=== PATIENT | female | born 1955 | race Caucasian/White ===

== ENCOUNTER → 2018-04-05 | Outpatient (CLI) | payer OTHER ==
--- NOTE | 2018-04-05 18:38 | Diagnostic Imaging Report ---
CLINICAL INDICATION: Patient with postmenopausal bleeding. Patient had menopause at 51 and bleeding at 62. EXAM: Transvaginal and transabdominal ultrasound of the pelvis. COMPARISON: None. FINDINGS: Bowel gas obscures some portions of this exam. The right and left ovaries are not visualized on this exam and may have been obscured by bowel gas. There is grossly 2.4 cm x 3.8 cm hypoechoic fluid collection within the endometrium in the region of the fundus, which has internal echoes seen. The uterus is otherwise unremarkable and measures 8.7 cm x 5.6 cm x 5.0 cm. There is no intra-abdominal free fluid. IMPRESSION: 1: There is a large fluid collection within the fundus of the endometrium. This fluid collection has internal echoes with no abnormal central Doppler flow. These findings are concerning for blood, especially in the setting of postmenopausal bleeding. Given that there is an endometrial fluid collection concerning for blood in a postmenopausal patient, an endometrial mass should be excluded. 2: Otherwise, the uterus is unremarkable. 3: The bilateral ovarian regions are unable to be visualized on this exam. Dictated by: Dictated on workstation # [id number]
== END ==
LOC: RAD 15:00
PROVIDERS: ATTEND Nurse Practitioner Family
DX: N95.0 Postmenopausal bleeding (principal)
CPT/HCPCS: 76830; 76856

== ENCOUNTER 2018-07-12 23:17 | Emergency (ER) | payer OTHER ==
[~2018-07-12] VITALS: Ht 157.5 cm; Wt 79.4 kg
--- OUTSIDE RECORDS SUMMARY | 2018-07-12 23:25 | XMS REPORT ---
Author Author CORNELIUSSHAZIA Odell Organization [facility] [place] Address [address] [place] [address] Care Team Providers Care Mail Clerk Name Role Phone CORNELIUSSHAZIA Odell Unavailable PROBLEMS Type Condition ICD9-CM Code [id number] Code Onset Dates Condition Status SNOMED Code Problem Acute cystitis with hematuria N30.01 Active 31413540 Problem Abdominal pain R10.9 Active 43620499 Problem Acute cystitis without hematuria N30.00 Active 23333569 Problem Irregular uterine bleeding N92.6 Active 64234533 Problem Post-menopausal bleeding N95.0 Active 40894010 ALLERGIES No Information ENCOUNTERS Encounter Location Date Diagnosis [facility] [id number] [place] [address]44- 2130 19 Apr, 2018 Acute cystitis with hematuria N30.01 [facility] [id number] [place] [address] 60724- [phone] 18 Apr, 2018 [facility] [place] [id number] [place] [address] 41055- [phone] 14 Apr, 2018 Post-menopausal bleeding N95.0 ; Abdominal pain R10.9 and Acute cystitis with hematuria N30.01 [facility] [id number] [place] [address] 11470- [phone] March, Post-menopausal bleeding N95.0 [facility] [id number] [place] [address] 65296 -4103 24 Feb, 2018 Abdominal pain R10.9 ; Acute cystitis without hematuria N30.00 ; Post-menopausal bleeding N95.0 and Irregular uterine bleeding N92.6 [facility] [id number] [place] [address] 57380- [phone] 10 Apr, 2009 IMMUNIZATIONS No Known Immunizations SOCIAL HISTORY Never Assessed REASON FOR VISIT new orders PLAN OF CARE VITAL SIGNS MEDICATIONS Medication Instructions Dosage Frequency Start Date End Date Duration Status Amoxicillin 500 mg Orally every 12 hrs 1 capsule 12h Apr, Apr, 10 day(s) Active RESULTS No Results PROCEDURES No Known procedures INSTRUCTIONS MEDICATIONS ADMINISTERED No Known Medications MEDICAL (GENERAL) HISTORY Type Description Date Medical History post menopause
--- OUTSIDE RECORDS SUMMARY | 2018-07-12 23:25 | XMS REPORT ---
Author Author CORNELIUSSHAZIA Odell Organization [facility] [place] Address [address] [place] [address] Care Team Providers Care Sisal Operator Name Role Phone CORNELIUSSHAZIA Odell Unavailable PROBLEMS Type Condition ICD9-CM Code [id number] Code Onset Dates Condition Status SNOMED Code Problem Acute cystitis with hematuria N30.01 Active 03359177 Problem Abdominal pain R10.9 Active 80732751 Problem Acute cystitis without hematuria N30.00 Active 75171481 Problem Irregular uterine bleeding N92.6 Active 00479263 Problem Post-menopausal bleeding N95.0 Active [id number] ALLERGIES No Known Allergies ENCOUNTERS Encounter Location Date Diagnosis [facility] [place] [id number] [place] [address] 48248- 2089 Apr, Acute cystitis with hematuria N30.01 [facility] [place] [id number] [place] [address] 42245- 1129 18 Apr, 2018 [facility] [place] [id number] [place] [address] 74048- 5714 14 Apr, 2018 Post-menopausal bleeding N95.0 ; Abdominal pain R10.9 and Acute cystitis with hematuria N30.01 [facility] [place] [id number] [place] [address] 06649- 4847 March, Post-menopausal bleeding N95.0 [facility] [id number] [place] [address] [phone] -[phone] 24 Feb, 2018 Abdominal pain R10.9 ; Acute cystitis without hematuria N30.00 ; Post-menopausal bleeding N95.0 and Irregular uterine bleeding N92.6 [facility] [place] [id number] [place] [address] 76941- 6877 Apr, IMMUNIZATIONS No Known Immunizations SOCIAL HISTORY Never Assessed REASON FOR VISIT Establish [facility], c/o lower abd pain and lower back pain PLAN OF CARE Activity Details Follow Up 4 Weeks Reason:f/u Future/Pending Procedure ROUTINE VENIPUNCTURE VITAL SIGNS Height 63 in 2018-04-26 Weight 197.5 lbs 2018-04-26 Temperature 98.3 degrees Fahrenheit 2018-04-26 Heart Rate 73 bpm 2018-04-26 Respiratory Rate 20 2018-04-26 BMI 34.98 kg/m2 2018-04-26 Blood pressure systolic 150 mmHg 2018-04-26 Blood pressure diastolic 90 mmHg 2018-04-26 MEDICATIONS Medication Instructions Dosage Frequency Start Date End Date Duration Status Macrobid 100 mg Orally every 12 hrs 1 capsule with food 12h Apr, Apr, 05 days Active RESULTS No Results PROCEDURES Procedure Date Ordered Result Body Site COMPLETE CBC W/AUTO DIFF WBC April 26, 2018 COMPREHEN METABOLIC PANEL April 26, 2018 URINE CULTURE/COLONY COUNT April 26, 2018 URINALYSIS, AUTO, W/O SCOPE April 26, 2018 VENIPUNCT, ROUTINE* April 26, 2018 LIPID PANEL April 26, 2018 ASSAY THYROID STIM HORMONE April 26, 2018 Hemoglobin Test Send Out 0 dollar April 26, 2018 IMMUNOASSAY, TUMOR, CA 125 April 26, 2018 INSTRUCTIONS MEDICATIONS ADMINISTERED No Known Medications MEDICAL (GENERAL) HISTORY Type Description Date Medical History post menopause
--- OUTSIDE RECORDS SUMMARY | 2018-07-12 23:25 | XMS REPORT ---
Author Author NATE VALDES [facility] Address [address] [place] [address] Care Team Providers Care Bundle Tier And Labeler Name Role Phone NATE VALDES Unavailable PROBLEMS Type Condition ICD9-CM Code [id number] Code Onset Dates Condition Status SNOMED Code Problem Acute cystitis with hematuria N30.01 Active 26998889 Problem Abdominal pain R10.9 Active 78734881 Problem Acute cystitis without hematuria N30.00 Active 74228414 Problem Irregular uterine bleeding N92.6 Active 07736076 Problem Post-menopausal bleeding N95.0 Active 80421582 ALLERGIES No Information ENCOUNTERS Encounter Location Date Diagnosis [facility] [address] [address] Apr, Acute cystitis with hematuria N30.01 [facility] [id number] [place] [address] 82562- 8504 18 Apr, 2018 [facility] [id number] [place] [address] 37331- 5478 14 Apr, 2018 Post-menopausal bleeding N95.0 ; Abdominal pain R10.9 and Acute cystitis with hematuria N30.01 [facility] [id number] [place] [address] 51493- 5722 March, Post-menopausal bleeding N95.0 [facility] [id number] [place] [address] [phone] -[phone] 24 Feb, 2018 Abdominal pain R10.9 ; Acute cystitis without hematuria N30.00 ; Post-menopausal bleeding N95.0 and Irregular uterine bleeding N92.6 [facility] [id number] [place] [address] [phone]- 9431 Apr, IMMUNIZATIONS No Known Immunizations SOCIAL HISTORY Never Assessed REASON FOR VISIT Corrected Order PLAN OF CARE VITAL SIGNS MEDICATIONS Unknown Medications RESULTS Name Result Date Reference Range Ultrasound : Pelvic, COMPLETE (REFLEX [id number]) 2018-04-02 PROCEDURES No Known procedures INSTRUCTIONS MEDICATIONS ADMINISTERED No Known Medications MEDICAL (GENERAL) HISTORY Type Description Date Medical History post menopause
--- OUTSIDE RECORDS SUMMARY | 2018-07-12 23:25 | XMS REPORT ---
Author Author NATE VALDES [facility] Address [address] [place] [address] Care Team Providers Care Machine Pecan Picker Name Role Phone NATE VALDES Unavailable PROBLEMS Type Condition ICD9-CM Code QVS38-GP Code Onset Dates Condition Status SNOMED Code Problem Acute cystitis with hematuria N30.01 Active 25974592 Problem Abdominal pain R10.9 Active 52270704 Problem Acute cystitis without hematuria N30.00 Active 76709350 Problem Irregular uterine bleeding N92.6 Active 24662346 Problem Post-menopausal bleeding N95.0 Active 04525517 ALLERGIES No Known Allergies ENCOUNTERS Encounter Location Date Diagnosis [facility] [address] [address] Apr, Acute cystitis with hematuria N30.01 [facility] [id number] [place] [address] 28213- 2111 18 Apr, 2018 [facility] [address] 216[address]- [address] 14 Apr, 2018 Post-menopausal bleeding N95.0 ; Abdominal pain R10.9 and Acute cystitis with hematuria N30.01 [facility] [id number] [place] [address] 37870- 5543 March, Post-menopausal bleeding N95.0 [facility] [id number] [place] [address] 80032 -[phone] 24 Feb, 2018 Abdominal pain R10.9 ; Acute cystitis without hematuria N30.00 ; Post-menopausal bleeding N95.0 and Irregular uterine bleeding N92.6 [facility] [id number] [place] [address] 82228- 9642 Apr, IMMUNIZATIONS No Known Immunizations SOCIAL HISTORY Never Assessed REASON FOR VISIT abdominal pain Pt c/o pelvic pain and bleeding after menopause, along with painful intercourse SERGEY Jaime PLAN OF CARE Activity Details Follow Up 1 Week w/ Dr. Burns or Dr. Shrestha Reason:irregular uterine bleeding and stress incontinence VITAL SIGNS Weight 195.6 lbs 2018-03-06 Temperature 98.0 degrees Fahrenheit 2018-03-06 Heart Rate 88 bpm 2018-03-06 Respiratory Rate 20 2018-03-06 Blood pressure systolic 148 mmHg 2018-03-06 Blood pressure diastolic 76 mmHg 2018-03-06 MEDICATIONS Medication Instructions Dosage Frequency Start Date End Date Duration Status Macrobid 100 mg Orally every 12 hrs 1 capsule with food 12h Feb, March, 7 day(s) Active RESULTS No Results PROCEDURES Procedure Date Ordered Result Body Site URINE CULTURE/COLONY COUNT March 06, 2018 INSTRUCTIONS MEDICATIONS ADMINISTERED No Known Medications MEDICAL (GENERAL) HISTORY Type Description Date Medical History post menopause
--- OUTSIDE RECORDS SUMMARY | 2018-07-12 23:25 | XMS REPORT ---
Author Author CORNELIUSSHAZIA Odell Organization [facility] Address [address] [place] [address] Care Team Providers Care Architectural Job Captain Name Role Phone CORNELIUSSHAZIA Odell Unavailable PROBLEMS Type Condition ICD9-CM Code GHN93-OC Code Onset Dates Condition Status SNOMED Code Problem Acute cystitis with hematuria N30.01 Active 04984344 Problem Abdominal pain R10.9 Active 92773346 Problem Acute cystitis without hematuria N30.00 Active 97116237 Problem Irregular uterine bleeding N92.6 Active 41621238 Problem Post-menopausal bleeding N95.0 Active 52771840 ALLERGIES No Information ENCOUNTERS Encounter Location Date Diagnosis [facility] [id number] [place] [address] 62987- 1142 19 Apr, 2018 Acute cystitis with hematuria N30.01 [facility] [id number] [place] [address] 79967- 6287 18 Apr, 2018 [facility] [id number] [place] [address] 76889- 5203 14 Apr, 2018 Post-menopausal bleeding N95.0 ; Abdominal pain R10.9 and Acute cystitis with hematuria N30.01 [facility] [id number] [place] [address] 16808- 4246 March, Post-menopausal bleeding N95.0 [facility] [id number] [place] [address] [phone] -[phone] 24 Feb, 2018 Abdominal pain R10.9 ; Acute cystitis without hematuria N30.00 ; Post-menopausal bleeding N95.0 and Irregular uterine bleeding N92.6 [facility] [id number] [place] [address] 42147- 5820 10 Apr, 2009 IMMUNIZATIONS No Known Immunizations SOCIAL HISTORY Never Assessed REASON FOR VISIT Rx from lab PLAN OF CARE VITAL SIGNS MEDICATIONS Medication Instructions Dosage Frequency Start Date End Date Duration Status MetFORMIN HCl ER 500 mg Orally twice a day 1 tablet 12h Apr, 30 day(s) Active RESULTS No Results PROCEDURES No Known procedures INSTRUCTIONS MEDICATIONS ADMINISTERED No Known Medications MEDICAL (GENERAL) HISTORY Type Description Date Medical History post menopause
[2018-07-13 00:51] LABS: HEMOGLOBIN 12.1 G/DL (11.5-16.0); MEAN PLATELET VOLUME 9.1 FL (7.4-10.4); RED BLOOD COUNT 4.18 10^6/uL (4.35-5.85); RED CELL DISTRIBUTION WIDTH 12.9 % (10.0-14.5); WHITE BLOOD COUNT 9.6 10^3/uL (4.3-11.0)
--- NOTE | 2018-07-13 01:35 | ED Abdominal Pain ---
General Chief Complaint: -Female Stated Complaint: ABD PAIN,ABD BLEEDING Nursing Triage Note: INTERMITTANT VAGINAL BLEEDING X2 MONTHS WORSE TONIGHT Sepsis Screen: No Definite Risk Source of Information: Patient, Family (Son) Exam Limitations: Language Barrier (CADEN ALEGRE STUDENT) History of Present Illness Date Seen by Provider: Jul 13, 2018 Time Seen by Provider: 01:15 Initial Comments Patient presents to ED with intermittent vaginal bleeding over the last two months which has been getting worse. History taken from patient and her son who brought her as she has problems with Uzbek. Patient reports she has spotted every day for the past month and has pelvic imaging scheduled next week. She is confused about who she has been following up with for this issue, she originally said that she was seeing CUSTOMER SALES REPRESENTATIVE but it appears as though she really has been seeing a practitioner at the [facility]. Tonight the patient states she began to bleed briefly at approximately 2100 and again at 2300 which also quickly ceased, with the bleeding tonight she also experienced suprapubic and lumbar pain which persists. Nothing makes the pain better or worse and she has not taken anything for the pain. Patient denies numbness and tingling, weakness, and changes in bowel or bladder habits. Patient admits to recently having a urinary tract infection which was successfully treated. Timing/Duration: Intermittent, Other (2 months) Severity/Quality: Aching Location: Suprapubic, Other (Lumbar spine) Activities at Onset: None Associated Symptoms: Denies Symptoms (CADEN ALEGRE STUDENT) Initial Comments Here with intermittent vaginal bleeding which appears to have been going on since March of this year. She had ultrasound at that time. She appears to have been seen by a practitioner at [facility]. She reports that she saw her yesterday but does not remember her name. She is due to get further imaging early next week but she's not sure what that imaging is or what day. Patient admits that she does not go to the doctor very often. Here with lower abdominal pain and back pain as well as the intermittent vaginal bleeding. Timing/Duration: Other (3 months) Severity/Quality: Cramping Location: Suprapubic Radiation: Back Activities at Onset: None Modifying Factors: Improves With Other (none) Associated Symptoms: Denies Symptoms (GRETA HILLMAN MD) Allergies and Home Medications Allergies Coded Allergies: No Known Drug Allergies (Unverified , 07/13/18) Home Medications No Active Prescriptions or Reported Meds Patient Home Medication List Home Medication List Reviewed: Yes (CADEN ALEGRE) Home Medication List Reviewed: Yes (GRETA HILLMAN MD) Review of Systems Review of Systems Constitutional: no symptoms reported, see HPI EENTM: No Blurred Vision, No Double Vision Respiratory: No Symptoms Reported, See HPI Cardiovascular: No Symptoms Reported, See HPI Gastrointestinal: No Symptoms Reported, See HPI, Rectal Bleeding Genitourinary: No Symptoms Reported, See HPI, Other (Recent UTI, resolved) Musculoskeletal: see HPI, back pain Skin: no symptoms reported, see HPI Psychiatric/Neurological: No Symptoms Reported Endocrine: No Symptoms Reported, See HPI Hematologic/Lymphatic: No Symptoms Reported, See HPI (CADEN ALEGRE ) Constitutional: see HPI; No chills, No fever EENTM: No Symptoms Reported Respiratory: Denies Cough, Denies Shortness of Air Cardiovascular: Denies Chest Pain, Denies Edema Gastrointestinal: See HPI, Abdominal Pain; Denies Nausea; Rectal Bleeding ( occasional intermittent but not currently); Denies Vomiting Genitourinary: See HPI; Denies Hematuria; Other (Recent UTI, resolved) Musculoskeletal: back pain; No muscle weakness Skin: no symptoms reported Psychiatric/Neurological: No Symptoms Reported (GRETA HILLMAN MD) All Other Systems Reviewed Negative Unless Noted: Yes (GRETA HILLMAN MD) Past Zdbhjpm-Tzwbvg-Ulidvm Hx Past Med/Social Hx: Reviewed Nursing Past Med/Soc Hx (GRETA HILLMAN MD) Patient Social History Alcohol Use: Denies Use Recreational Drug Use: No Smoking Status: Never a Smoker 2nd Hand Smoke Exposure: No Recent Foreign Travel: No Contact w/Someone Who Travel: No Recent Infectious Disease Expo: No Recent Hopitalizations: No (CADEN ALEGRE) Immunizations Up To Date Tetanus Booster (TDap): Unknown (CADEN ALEGRE) Seasonal Allergies Seasonal Allergies: No (CADEN ALEGRE) Past Medical History Surgeries: No Respiratory: No Cardiac: Yes Hypertension Neurological: No Genitourinary: Yes UTI-Chronic Gastrointestinal: No Musculoskeletal: No Endocrine: Yes Diabetes, Non-Insulin dep HEENT: No Cancer: No Psychosocial: No Integumentary: No Blood Disorders: No (CADEN ALEGRE STUDENT) Family Medical History Reviewed Nursing Family Hx (GRETA HILLMAN MD) Physical Exam Vital Signs Vital Signs - First Documented 07/13/18 00:05 Temp 97.8 Pulse 77 Resp 18 B/P (MAP) 167/100 (122) Pulse Ox 100 O2 Delivery Room Air (GRETA HILLMAN MD) Vital Signs Capillary Refill : Less Than 3 Seconds (CADEN ALEGRE STUDENT) Height/Weight/BMI Height: 5'2.00" Weight: 175lbs. oz. 79.018564ts; BMI Method:Stated General Appearance: WD/WN, no apparent distress, obese Neck: non-tender, full range of motion, supple, normal inspection Respiratory: chest non-tender, lungs clear, normal breath sounds, no respiratory distress, no accessory muscle use Cardiovascular: normal peripheral pulses, regular rate, rhythm, no edema, no gallop, no JVD, no murmur Peripheral Pulses: 2+ Dorsalis Pedis (R), 2+ Left Dors-Pedis (L), 2+ Radial Pulses (R), 2+ Radial Pulses (L) Gastrointestinal: normal bowel sounds, soft, no organomegaly, no pulsatile mass , tenderness (Suprapubic tenderness) Extremities: normal range of motion, non-tender, normal inspection, no pedal edema, no calf tenderness Back: normal inspection, no CVA tenderness, vertebral tenderness Neurologic/Psychiatric: no motor/sensory deficits, alert, normal mood/affect, oriented x 3 Skin: normal color, warm/dry (CADEN ALEGRE STUDENT) General Appearance: WD/WN, no apparent distress Neck: full range of motion, supple Respiratory: lungs clear, normal breath sounds Cardiovascular: regular rate, rhythm, no murmur Gastrointestinal: soft, tenderness (Suprapubic tenderness) Back: normal inspection, no CVA tenderness, vertebral tenderness (low back in the L4-L5 region) Neurologic/Psychiatric: alert, oriented x 3 Skin: normal color, warm/dry (GRETA HILLMAN MD) Progress/Results/Core Measures Results/Orders Lab Results Laboratory Tests Test 07/13/18 00:04 07/13/18 00:40 07/13/18 01:00 Range/Units Sodium Level 137 135-145 MMOL/L Potassium Level 3.6 3.6-5.0 MMOL/L Chloride Level 104 98-107 MMOL/L Carbon Dioxide Level 23 21-32 MMOL/L Anion Gap 10 5-14 MMOL/L Blood Urea Nitrogen 17 7-18 MG/DL Creatinine 0.82 0.60-1.30 MG/DL Estimat Glomerular Filtration Rate > 60 BUN/Creatinine Ratio 21 Glucose Level 108 H 70-105 MG/DL Calcium Level 9.5 8.5-10.1 MG/DL Corrected Calcium 9.6 8.5-10.1 MG/DL Total Bilirubin 0.7 0.1-1.0 MG/DL Aspartate Amino Transf (AST/SGOT) 17 5-34 U/L Alanine Aminotransferase (ALT/SGPT) 11 0-55 U/L Alkaline Phosphatase 63 40-136 U/L Total Protein 7.5 6.4-8.2 GM/DL Albumin 3.9 3.2-4.5 GM/DL White Blood Count 9.6 4.3-11.0 10^3/uL Red Blood Count 4.18 L 4.35-5.85 10^6/uL Hemoglobin 12.1 11.5-16.0 G/DL Hematocrit 37 35-52 % Mean Corpuscular Volume 89 80-99 FL Mean Corpuscular Hemoglobin 29 25-34 PG Mean Corpuscular Hemoglobin Concent 33 32-36 G/DL Red Cell Distribution Width 12.9 10.0-14.5 % Platelet Count 213 130-400 10^3/uL Mean Platelet Volume 9.1 7.4-10.4 FL Urine Color YELLOW Urine Clarity SLIGHTLY CLOUDY Urine pH 7 5-9 Urine Specific [place] 1.010 L 1.016-1.022 Urine Protein NEGATIVE NEGATIVE Urine Glucose (UA) NEGATIVE NEGATIVE Urine Ketones 1+ H NEGATIVE Urine Nitrite NEGATIVE NEGATIVE Urine Bilirubin NEGATIVE NEGATIVE Urine Urobilinogen NORMAL NORMAL MG/DL Urine Leukocyte Esterase 1+ H NEGATIVE Urine RBC (Auto) 5+ H NEGATIVE Urine RBC 50-100 H /HPF Urine WBC 2-5 /HPF Urine Squamous Epithelial Cells RARE /HPF Urine Crystals NONE /LPF Urine Bacteria FEW H /HPF Urine Casts NONE /LPF Urine Mucus NEGATIVE /LPF Urine Culture Indicated NO (GRETA HILLMAN MD) My Orders Orders - GRETA HILLMAN MD Cbc No Diff (07/13/18 00:26) Ua Culture If Indicated (07/13/18 01:52) Comprehensive Metabolic Panel (07/13/18 01:53) Ct Abdomen/Pelvis W (07/13/18 02:24) Iohexol Injection (Omnipaque 350 Mg/Ml 1 (07/13/18 03:00) Ns (Ivpb) (Sodium Chloride 0.9%) (07/13/18 03:00) Hydrocodone/Apap 5/325 Tablet (Lortab 5 (07/13/18 04:35) (GRETA HILLMAN MD) Medications Given in ED Current Medications Medications Dose Ordered Sig/Maxime Route Start Time Stop Time Status Last Admin Dose Admin Iohexol 100 ml ONCE ONCE IV 07/13/18 03:00 07/13/18 03:01 DC 07/13/18 03:01 100 ML Sodium Chloride 250 ml ONCE ONCE IV 07/13/18 03:00 07/13/18 03:01 DC 07/13/18 03:01 80 ML (GRETA HILLMAN MD) Vital Signs/I&O 07/13/18 00:05 Temp 97.8 Pulse 77 Resp 18 B/P (MAP) 167/100 (122) Pulse Ox 100 O2 Delivery Room Air (GRETA HILLMAN MD) Blood Pressure Mean: 122 Progress Progress Note : Time: 02:17 Progress Note Patient seen and evaluated. Reviewed previous medical records. Reviewed pelvic ultrasound report from 04/05/18 (copied below) which shows endometrial mass which warrants follow-up. Ordering labs and anticipating CT. FINDINGS: Bowel gas obscures some portions of this exam. The right and left ovaries are not visualized on this exam and may have been obscured by bowel gas. There is grossly 2.4 cm x 3.8 cm hypoechoic fluid collection within the endometrium in the region of the fundus, which has internal echoes seen. The uterus is otherwise unremarkable and measures 8.7 cm x 5.6 cm x 5.0 cm. There is no intra-abdominal free fluid. IMPRESSION: 1: There is a large fluid collection within the fundus of the endometrium. This fluid collection has internal echoes with no abnormal central Doppler flow. These findings are concerning for blood, especially in the setting of postmenopausal bleeding. Given that there is an endometrial fluid collection concerning for blood in a postmenopausal patient, an endometrial mass should be excluded. 2: Otherwise, the uterus is unremarkable. 3: The bilateral ovarian regions are unable to be visualized on this exam. Interpreted by: MARCO SALVADOR MD (CADEN ALEGRE MED STUDENT) Progress Note : Progress Note I have seen and evaluated the patient and agree with above except as indicated. I have directed the plan of care. I have reviewed the ultrasound results from previous visit as noted above. IV, labs and UA ordered. We will get CT abdomen and pelvis due to persistent concerns and failure to follow-up and lack of understanding of medical care. Normal saline 1 L bolus. Monitor patient. 0425: CT results noted and discussed with patient and family regarding the uterine mass and concerns of cancer. I did discuss the case with Dr. Mason, on- call for [facility]. She will assist in follow-up. Patient will have complex follow-up needs due to the cancer situation and concerns. I did discuss the need for follow-up with the patient and family and my concerns about cancer and its aggressiveness. They will follow up with [facility] in the morning. Discharged home with return precautions. Patient family verbalize understanding instructions and agreement with plan. (GRETA HILLMAN MD) Diagnostic Imaging Diagonstic Imaging: CT Plain Films/CT/US/NM/MRI: abdomen, pelvis Comments There is infiltrated mass in the uterus extending from the paracervical lower uterine segment and extending toward the right uterine mid body. There is heterogenous enhancement which may include endometrial enhancement. There is moderate distention of the fundal endometrial canal with fluid. These findings are suspicious for an aggressive uterine mass, possibly uterine cancer. There is high-grade right renal obstruction without nephrolithiasis. I suspect this is involvement external compression of the right distal ureter. Reviewed: Reviewed [place] Study, Reviewed by Me (GRETA HILLMAN MD) Departure Impression Primary Impression: Uterine mass Additional Impressions: Hydronephrosis of right kidney Obstruction of right ureter Disposition: 01 HOME, SELF-CARE Condition: Stable Departure-Patient Inst. Decision time for Depature: 04:30 (GRETA HILLMAN MD) Referrals: REHANA MASON MD Patient Instructions: Hydronephrosis, Adult (DC), Uterine Cancer Add. Discharge Instructions: All discharge instructions reviewed with patient and/or family. Voiced understanding. It is very important that you follow-up with the clinic today for recheck and further evaluation and further referral regarding the suspicious uterine mass. This may be cancer and he need further evaluation soon. Return for worse pain, fever, vomiting, weakness, breathing problems or other concerns as needed. Scripts Hydrocodone Bit/Acetaminophen (Hydrocodone/Acetaminophen 5/325mg Tablet) 1 Tab Tab 1 EACH PO Q6H PRN for PAIN-MODERATE, #20 TAB 0 Refills Prov: GRETA HILLMAN MD 07/13/18 Copy Copies To 1: REHANA MASON MD, JOSHUA MED STUDENT Jul 13, 2018 01:35 GRETA HILLMAN MD Jul 13, 2018 04:27
[2018-07-13 01:59] LABS: BILIRUBIN,URINE NEGATIVE (NEGATIVE); CLARITY,URINE SLIGHTLY CLOUDY; COLOR,URINE YELLOW; GLUCOSE, URINE (UA) NEGATIVE (NEGATIVE); KETONES,URINE 1+ (NEGATIVE); LEUKOCYTE ESTERASE ,URINE 1+ (NEGATIVE); NITRITE,URINE NEGATIVE (NEGATIVE); PH,URINE 7 (5-9); PROTEIN,URINE NEGATIVE (NEGATIVE); UROBILINOGEN,URINE NORMAL (NORMAL)
[2018-07-13 02:09] LABS: BACTERIA,URINE FEW /HPF; RBC,URINE 50-100 /HPF; SQUAMOUS EPITHELIAL CELL,UR RARE /HPF
[2018-07-13 02:21] LABS: ALANINE AMINOTRANSFERASE 11 U/L (0-55); ALBUMIN 3.9 GM/DL (3.2-4.5); ALKALINE PHOSPHATASE 63 U/L (40-136); BILIRUBIN,TOTAL 0.7 MG/DL (0.1-1.0); BUN/CREATININE RATIO 21; CALCIUM 9.5 MG/DL (8.5-10.1); CARBON DIOXIDE 23 MMOL/L (21-32); CHLORIDE 104 MMOL/L (98-107); CREATININE SERUM 0.82 MG/DL (0.60-1.30); GFR ESTIMATED > 60; GLUCOSE 108 MG/DL (70-105); POTASSIUM 3.6 MMOL/L (3.6-5.0); SODIUM 137 MMOL/L (135-145); TOTAL PROTEIN 7.5 GM/DL (6.4-8.2)
[2018-07-13] MEDS: IOHEXOL 350 MG/ML 100 ML (OMNIPAQUE 350) VIAL IV ONE (03:01)
[2018-07-13] MEDS: NS 250 ML (IVPB) BAG IV ONE (03:01)
[2018-07-13] MEDS ORDERED: ACHD5005 PO (04:36)
[2018-07-13] MEDS: HYDROcodone/APAP 5 MG/325 MG (LORTAB) TAB PO STA (04:46)
[2018-07-13 04:47] VITALS: BP 167/100
--- NOTE | 2018-07-13 07:46 | Diagnostic Imaging Report ---
PROCEDURE: CT abdomen and pelvis with contrast. TECHNIQUE: Multiple contiguous axial images were obtained through the abdomen and pelvis after administration of intravenous contrast. INDICATION: Vaginal bleeding. COMPARISON: None. FINDINGS: Lung bases are clear. The gallbladder, liver, spleen, pancreas, adrenal glands, left kidney, vascular structures and bowel are unremarkable. There is moderate right-sided hydronephrosis and hydroureter likely due to extrinsic compression of the distal ureter. There is infiltrative mass which involves the endocervix, lower uterine segment. There is distention of the endometrium. This could represent uterine or cervical neoplasm. The distal left ureter and urinary bladder are unremarkable. Abnormal right iliac and retroperitoneal lymph nodes are present. The largest is a periaortic lymph node at the level of the kidneys measuring 13 mm in cross-section. There is no ascites. No free air identified. The osseous structures are age appropriate. IMPRESSION: 1. Likely uterine or cervical neoplasm with associated lymphadenopathy. Gynecological consultation recommended. 2. Right-sided hydronephrosis secondary to extrinsic compression of the distal right ureter. 3. No ascites identified. Agree with preliminary report. Dictated by: Dictated on workstation # [id number]
== END 2018-07-13 04:46 | disposition home or self-care (01) ==
LOC: EDUNIT# 23:17 → ER 23:20
DX: N85.8 Other specified noninflammatory disorders of uterus (principal); N13.0 Hydronephrosis with ureteropelvic junction obstruction; N93.9 Abnormal uterine and vaginal bleeding, unspecified; I10 Essential (primary) hypertension; E11.9 Type 2 diabetes mellitus without complications; Z87.440 Personal history of urinary (tract) infections
CPT/HCPCS: 36415; 74177; 80053; 81000; 85027

== ENCOUNTER → 2018-08-24 | Outpatient (CLI) | payer OTHER ==
[~2018-08-24] MED LIST: ACHD5005 PO; LISI-556 PO
== END | disposition home or self-care (01) ==
LOC: PREOP 10:14
PROVIDERS: ATTEND Surgery
DX: Z01.818 Encounter for other preprocedural examination (principal)

== ENCOUNTER 2018-08-27 09:16 | Day surgery (SDC) | payer OTHER ==
[~2018-08-27] VITALS: Ht 157.5 cm; Wt 79.4 kg
[~2018-08-27 09:16] MED LIST changes: -LISI-556 PO
[2018-08-27] MEDS ORDERED: ceFAZolin 2 GM IV Premixed 50 ML IV ONE (09:30)
[2018-08-27] MEDS ORDERED: LACTATED RINGERS 1,000 ML IV PRN (09:47)
[2018-08-27] MEDS ORDERED: 0.9% SODIUM CHLORIDE PF INJ 20 ML VIAL ONE (10:03)
[2018-08-27] MEDS ORDERED: HEParin (CENTRAL IV FLUSH) 500 UNIT/5 ML SYR ONE (10:03)
[2018-08-27] MEDS ORDERED: LIDOCAINE/EPI 1%-1:200,000 (XYLOCAINE) 10 ML VIAL ONE (10:03)
[2018-08-27] MEDS ORDERED: fentaNYL INJECTION 100 MCG/2 ML AMP ONE (10:05)
[2018-08-27] MEDS ORDERED: proPOfol 200 MG/20 ML (DIPRIVAN) VIAL IV ONE (10:05)
[2018-08-27] MEDS ORDERED: LIDOCAINE PF 2% 5 ML (XYLOCAINE) VIAL ONE (10:05)
[2018-08-27] MEDS ORDERED: MIDAZOLAM 2 MG/2 ML (VERSED) VIAL ONE (10:06)
--- NOTE | 2018-08-27 10:09 | Progress Note-Pre Operative ---
Pre-Operative Progress Note H&P Reviewed The H&P was reviewed, patient examined and no changes noted. Time Seen by Provider: 10:02 Date H&P Reviewed: Aug 27, 2018 Time H&P Reviewed: 10:03 Pre-Operative Diagnosis: , Cervix CA ALEA JHA DO Aug 27, 2018 10:08
[2018-08-27] MEDS ORDERED: LISI-556 PO (10:18)
[2018-08-27 10:24] VITALS: BP 172/97
--- NOTE | 2018-08-27 11:03 | Progress Note-Post Operative ---
Post-Operative Progess Note Surgeon (s)/Looper Fixer (s) Surgeon ALEA JHA DO Looper Fixer: OSVALDO PalmerII Pre-Operative Diagnosis , Cervix CA Post-Operative Diagnosis same Procedure & Operative Findings Date of Procedure 08/27/18 Procedure Performed/Findings Portacath insertion, R ACW, R SC vein Anesthesia Type IV sedation by STRAIGHTEDGE WORKER Estimated Blood Loss Estimated blood loss (mL): scant Specimens/Packing Specimens Removed none ALEA JHA DO Aug 27, 2018 11:03
--- NOTE | 2018-08-27 11:05 | Discharge Inst-Surgical ---
Discharge Inst-Surgical Depart Medication/Instructions New, Converted or Re-Newed RX: Other (pt has pain meds already) Patient Instructions Follow up Appt: Make appointment for 1 week. Instructions: No strenuous activity. May shower in 24 hours, no tub bath or soaking. Use incentive spirometer at home as directed. No Smoking Skin/Wound Care: May remove bandages in am. You need to leave the Dermabond on over incision it will fall off on its own. Symptoms to Report: Appetite Changes, Extremity Discoloration, Numbness/Tingling, Swelling Increased , Bleeding Excessive, Eyesight Changes, Pain Increased, Urine Color Change, Constipation(Persistent), Fever over 101 degree F, Pain/Pressure in chest, Urinating Difficulty, Cough Up/Vomit Blood, Heart Beat Irreg/Pounding, Pain/ Pressure in jaw, Vaginal Bleeding Increase, Cramps in feet or legs, Lightheadedness, Pain/Pressure in shoulder, Diarrhea(Persistent), Memory Changes Suddenly, Questions/Concerns, Weight gain consecutive days, Dizziness/ Fainting, Nausea/Vomiting, Shortness of Breath, Weight gain over 2 pounds If questions or concerns contact your physician Or seek help at emergency department. Activity Activity as Tolerated: Yes Activity Instructions: Avoid Stress to Incision Driving Instructions: No Driving/Refer to Diet Discharge Diet: No Restrictions Diet After 24 Hours: Clear Liquid if Nauseous If Any Problems/Questions/Issu: Contact Your Physician, Go to Emergency Room Skin/Wound Care Infection Signs and Symptoms: Increased Redness, Foul Odor of Wound, Increased Drainage, Skin Itchy or Has a Rash, Increased Swelling, Temperature Above 101 F Bathing Instructions: Shower Stitches/[place]/Dermabond Dis: Dermabond Ice Pack: Ice On and Off Site (as needed for pain) ALEA JHA DO Aug 27, 2018 11:05
[2018-08-27] MEDS ORDERED: ONDANSETRON 4 MG/2 ML (SDV) Z0FRAN IVP PRN (11:30)
[2018-08-27] MEDS ORDERED: HYDROmorphone 2 MG/ML VIAL (DILAUDID) IV ONE (11:30)
[2018-08-27 11:40] VITALS: BP 156/98
[2018-08-27 12:10] VITALS: BP 147/93
[2018-08-27 13:05] VITALS: BP 147/93
--- NOTE | 2018-08-27 13:28 | Anesthesia-General Post-Op ---
MAC Patient Condition Mental Status/LOC: Same as Preop Cardiovascular: Satisfactory Nausea/Vomiting: Absent Respiratory: Satisfactory Pain: Controlled Complications: Absent Post Op Complications Complications None Follow Up Care/Instructions Patient Instructions None needed. Anesthesiology Discharge Order Discharge Order Patient is doing well, no complaints, stable vital signs, no apparent adverse anesthesia problems. No complications reported per nursing. DERIC SKINNER CRNA Aug 27, 2018 13:28
--- NOTE | 2018-08-27 14:21 | Diagnostic Imaging Report ---
Indication: Groshong catheter placement. Findings: Single intraoperative view of the chest was obtained. Wlokre-P-Obio catheter overlies the right hemithorax and has its tip in the upper superior vena cava. Impression: Intraoperative fluoroscopy as described. Dictated by: Dictated on workstation # [id number]
--- NOTE | 2018-08-27 22:37 | OPERATIVE REPORT ---
DATE OF SERVICE: PREOPERATIVE DIAGNOSES: 1. Venous insufficiency. 2. Cancer of the cervix. POSTOPERATIVE DIAGNOSES: 1. Venous insufficiency. 2. Cancer of the cervix. PROCEDURE: Port-A-Cath insertion right anterior chest wall and right subclavian vein. SURGEON: Crispin Gonzalez DO. COMMERCIAL ARTIST LETTERING: LESTER Palmer. ANESTHESIA: IV sedation by the FOUNDER. SPECIMENS: None. BLOOD LOSS: Scant. FLUIDS: Per anesthesia. POSTOPERATIVE CONDITION: Stable. INDICATION FOR PROCEDURE: The patient is a 63-year-old female who unfortunately has cancer of the cervix and she has some venous insufficiency. We will need long-term IV access for chemotherapy. FINDINGS: The patient had a port placed in the right anterior chest wall, right subclavian vein with fluoroscopy guidance. PROCEDURE NOTE: After informed consent was obtained, the patient was brought to the operating room, placed on the table in supine position. She was sterilely prepped and draped in normal fashion. Local lidocaine was used to infiltrate the skin in the right anterior chest wall going towards the clavicle as well as a infiltrating a large area (pocket) where the port would be placed. The patient placed slightly Trendelenburg and then advanced to 18 gaugefine needle with negative inspiration under the clavicle towards the subclavian vein cannulated on the first attempt. Good flash of blood, removed the syringe, placed a guidewire down the needle using Seldinger technique, it went in easily, checked with fluoroscopy, it was in good position, removed the needle. Clamped the guidewire with a hemostat to the drape. I made a stab incision at the catheter with #11 blade and then made an incision in the right anterior chest wall with a #11 blade, carried down to skin into subcutaneous tissue, deepened down to subcutaneous tissue with Bovie electrocautery down to the fascia pectoralis muscle. Created a pocket bluntly as well as with Bovie electrocautery. Once this was created, then over the guidewire placed a dilator using Seldinger technique, it went in easily, checked with fluoroscopy, it was in good position, removed the inner portion of the dilator sheath as well as the guidewire, then placed the catheter down the dilator using the Seldinger technique, again was checked with fluoroscopy, it was in good position, removed the dilator sheath, tunneled the catheter into the pocket previously created. Cut the catheter then attached it to the port, placed a locking mechanism then accessed with a Davis needle, checked, got a good flash of blood and then easily flushed with saline and then aspirated and then flushed with 2 mL of heparin. This port was then sutured in place with 3-0 Prolene suture placed the port in the pocket and then closed the incisions, closing the subcutaneous tissue with a 3-0 Vicryl two interrupted sutures and then closed the small stab incision with a 4-0 undyed Monocryl subcuticular stitch and closed the skin where the pocket was created with a 4-0 undyed Monocryl 3 interrupted subcuticular stitches. Area was cleaned and dried. Dermabond placed as well as Band-Aids. The patient then transferred to recovery room in stable condition. Job ID: [id number] DocumentID: [id number] Dictated Date: 08/27/2018 11:12:48 Associate Professor Of Geography Date: 08/27/2018 22:36:48 Dictated By: DO [place]
== END 2018-08-27 13:05 | disposition home or self-care (01) ==
LOC: SDC 09:16
PROVIDERS: ATTEND Surgery
DX: I87.2 Venous insufficiency (chronic) (peripheral) (principal); C53.9 Malignant neoplasm of cervix uteri, unspecified; I10 Essential (primary) hypertension; Z79.899 Other long term (current) drug therapy
CPT/HCPCS: 87081

== ENCOUNTER → 2018-09-04 | Outpatient (CLI) | payer OTHER ==
[~2018-09-04] MED LIST changes: +LISI-556 PO
--- NOTE | 2018-09-04 16:32 | Diagnostic Imaging Report ---
INDICATION: Cervical carcinoma. Study is performed for initial treatment strategy and planning. TECHNIQUE: Serum blood glucose level at the time of injection was 109 mg/dL. The patient was administered 13.7 mCi of F-18 FDG intravenously in the right antecubital location and PET imaging was performed from the top of the skull to the mid thighs. Noncontrast CT was also performed for attenuation correction and anatomic correlation. COMPARISON: Correlation is made with recent CT of the abdomen and pelvis from 07/13/2018. No prior PET studies available. FINDINGS: Symmetric activity in the brain is seen. No abnormal hypermetabolism in the neck is identified. Imaging through the chest demonstrates normal physiologic activity within the mediastinum and myla. No abnormal pulmonary parenchymal hypermetabolism is seen. Physiologic activity within the GI and tracts of the abdomen and pelvis is seen. There are hypermetabolic enlarged nodes in the central retroperitoneum. An enlarged aortocaval node demonstrates an SUV max of 5.3. Left para-aortic antony mass demonstrates SUV max of 7.8. A hypermetabolic right iliac node demonstrates SUV max of 4.7. Intense hypermetabolism in the midline of the pelvis is seen consistent with patient's known cervical malignancy. SUV max in the cervix is approximately 10.5. This again does appear to produce extrinsic compression on the distal right ureter producing moderate hydroureteronephrosis. IMPRESSION: Intense hypermetabolism in the midline of the low pelvis consistent with patient's known cervical malignancy. This does produce extrinsic compression on the distal right ureter with moderate right hydroureteronephrosis. There are hypermetabolic central retroperitoneal and right iliac lymph nodes consistent with metastatic disease. No abnormal hypermetabolism in the chest is identified. Dictated by: Dictated on workstation # [id number]
== END ==
LOC: RAD 12:34
PROVIDERS: ATTEND Radiology Radiation Oncology
DX: C53.9 Malignant neoplasm of cervix uteri, unspecified (principal)

== ENCOUNTER → 2018-09-20 | Outpatient (CLI) | payer OTHER ==
[2018-09-20 09:00] LABS: BASOPHILS % (AUTO) 0 % (0-10); EOSINOPHILS # (AUTO) 0.1 10^3/uL (0.0-0.3); EOSINOPHILS % (AUTO) 1 % (0-10); HEMATOCRIT 33 % (35-52); HEMOGLOBIN 10.2 G/DL (11.5-16.0); LYMPHOCYTES # (AUTO) 0.4 X 10^3 (1.0-4.0); LYMPHOCYTES % (AUTO) 8 % (12-44); MEAN CORPUSCULAR HGB CONC 31 G/DL (32-36); MEAN CORPUSCULAR VOLUME 88 FL (80-99); MEAN PLATELET VOLUME 9.3 FL (7.4-10.4); MONOCYTES # (AUTO) 0.4 X 10^3 (0.0-1.0); MONOCYTES % (AUTO) 7 % (0-12); NEUTROPHILS # (AUTO) 4.2 X 10^3 (1.8-7.8); NEUTROPHILS % (AUTO) 84 % (42-75); PLATELET COUNT 213 10^3/uL (130-400); RED BLOOD COUNT 3.71 10^6/uL (4.35-5.85); RED CELL DISTRIBUTION WIDTH 13.3 % (10.0-14.5)
[2018-09-20 09:01] LABS: MEAN CORPUSCULAR HEMOGLOBIN 27 PG (25-34)
== END ==
LOC: LAB 08:50
PROVIDERS: ATTEND Radiology Radiation Oncology
DX: C53.9 Malignant neoplasm of cervix uteri, unspecified (principal)
CPT/HCPCS: 36415; 85025; 85027

== ENCOUNTER 2018-11-02 09:45 | Outpatient (RCR) | payer OTHER ==
[2018-08-21 14:27] LABS: BASOPHILS % (AUTO) 1 % (0-10); EOSINOPHILS # (AUTO) 0.2 10^3/uL (0.0-0.3); EOSINOPHILS % (AUTO) 3 % (0-10); HEMATOCRIT 36 % (35-52); HEMOGLOBIN 11.5 G/DL (11.5-16.0); LYMPHOCYTES # (AUTO) 1.7 X 10^3 (1.0-4.0); LYMPHOCYTES % (AUTO) 25 % (12-44); MEAN CORPUSCULAR HEMOGLOBIN 29 PG (25-34); MEAN CORPUSCULAR HGB CONC 32 G/DL (32-36); MEAN CORPUSCULAR VOLUME 89 FL (80-99); MEAN PLATELET VOLUME 9.4 FL (7.4-10.4); MONOCYTES # (AUTO) 0.4 X 10^3 (0.0-1.0); MONOCYTES % (AUTO) 5 % (0-12); NEUTROPHILS # (AUTO) 4.6 X 10^3 (1.8-7.8); NEUTROPHILS % (AUTO) 67 % (42-75); PLATELET COUNT 250 10^3/uL (130-400); RED BLOOD COUNT 4.02 10^6/uL (4.35-5.85); RED CELL DISTRIBUTION WIDTH 12.8 % (10.0-14.5); WHITE BLOOD COUNT 6.8 10^3/uL (4.3-11.0)
[2018-08-21 14:44] LABS: ALBUMIN 4.1 GM/DL (3.2-4.5); BILIRUBIN,TOTAL 0.3 MG/DL (0.1-1.0); CALCIUM 9.7 MG/DL (8.5-10.1); CREATININE SERUM 0.98 MG/DL (0.60-1.30); POTASSIUM 3.7 MMOL/L (3.6-5.0); TOTAL PROTEIN 7.9 GM/DL (6.4-8.2)
[2018-09-10 10:39] LABS: BASOPHILS % (AUTO) 1 % (0-10); EOSINOPHILS # (AUTO) 0.2 10^3/uL (0.0-0.3); EOSINOPHILS % (AUTO) 2 % (0-10); HEMATOCRIT 35 % (35-52); LYMPHOCYTES # (AUTO) 1.6 X 10^3 (1.0-4.0); LYMPHOCYTES % (AUTO) 22 % (12-44); MEAN CORPUSCULAR HEMOGLOBIN 27 PG (25-34); MEAN CORPUSCULAR HGB CONC 31 G/DL (32-36); MEAN CORPUSCULAR VOLUME 88 FL (80-99); MEAN PLATELET VOLUME 9.4 FL (7.4-10.4); MONOCYTES # (AUTO) 0.3 X 10^3 (0.0-1.0); MONOCYTES % (AUTO) 5 % (0-12); NEUTROPHILS % (AUTO) 70 % (42-75); PLATELET COUNT 218 10^3/uL (130-400); RED BLOOD COUNT 4.01 10^6/uL (4.35-5.85); RED CELL DISTRIBUTION WIDTH 12.7 % (10.0-14.5); WHITE BLOOD COUNT 7.1 10^3/uL (4.3-11.0)
[2018-09-10 10:56] LABS: ALANINE AMINOTRANSFERASE 12 U/L (0-55); ALBUMIN 3.9 GM/DL (3.2-4.5); ALKALINE PHOSPHATASE 62 U/L (40-136); BILIRUBIN,TOTAL 0.3 MG/DL (0.1-1.0); BUN/CREATININE RATIO 17; CALCIUM 9.4 MG/DL (8.5-10.1); CARBON DIOXIDE 26 MMOL/L (21-32); CHLORIDE 106 MMOL/L (98-107); CREATININE SERUM 0.86 MG/DL (0.60-1.30); GFR ESTIMATED > 60; GLUCOSE 101 MG/DL (70-105); POTASSIUM 3.9 MMOL/L (3.6-5.0); SODIUM 139 MMOL/L (135-145); TOTAL PROTEIN 7.5 GM/DL (6.4-8.2)
[2018-09-17 10:15] LABS: BASOPHILS % (AUTO) 1 % (0-10); EOSINOPHILS # (AUTO) 0.1 10^3/uL (0.0-0.3); EOSINOPHILS % (AUTO) 3 % (0-10); HEMATOCRIT 31 % (35-52); HEMOGLOBIN 9.9 G/DL (11.5-16.0); LYMPHOCYTES # (AUTO) 0.6 X 10^3 (1.0-4.0); LYMPHOCYTES % (AUTO) 11 % (12-44); MEAN CORPUSCULAR HEMOGLOBIN 28 PG (25-34); MEAN CORPUSCULAR HGB CONC 32 G/DL (32-36); MEAN CORPUSCULAR VOLUME 88 FL (80-99); MEAN PLATELET VOLUME 9.6 FL (7.4-10.4); MONOCYTES # (AUTO) 0.3 X 10^3 (0.0-1.0); MONOCYTES % (AUTO) 6 % (0-12); NEUTROPHILS # (AUTO) 4.1 X 10^3 (1.8-7.8); NEUTROPHILS % (AUTO) 80 % (42-75); PLATELET COUNT 221 10^3/uL (130-400); RED BLOOD COUNT 3.49 10^6/uL (4.35-5.85); RED CELL DISTRIBUTION WIDTH 13.1 % (10.0-14.5); WHITE BLOOD COUNT 5.2 10^3/uL (4.3-11.0)
[2018-09-17 10:33] LABS: BUN/CREATININE RATIO 20; CALCIUM 9.2 MG/DL (8.5-10.1); CARBON DIOXIDE 24 MMOL/L (21-32); CHLORIDE 106 MMOL/L (98-107); CREATININE SERUM 0.74 MG/DL (0.60-1.30); GFR ESTIMATED > 60; GLUCOSE 101 MG/DL (70-105); POTASSIUM 4.1 MMOL/L (3.6-5.0); SODIUM 137 MMOL/L (135-145)
[2018-09-24 09:56] LABS: BASOPHILS % (AUTO) 0 % (0-10); EOSINOPHILS # (AUTO) 0.1 10^3/uL (0.0-0.3); EOSINOPHILS % (AUTO) 3 % (0-10); HEMATOCRIT 30 % (35-52); HEMOGLOBIN 9.6 G/DL (11.5-16.0); LYMPHOCYTES # (AUTO) 0.4 X 10^3 (1.0-4.0); LYMPHOCYTES % (AUTO) 11 % (12-44); MEAN CORPUSCULAR HEMOGLOBIN 28 PG (25-34); MEAN CORPUSCULAR HGB CONC 32 G/DL (32-36); MEAN CORPUSCULAR VOLUME 88 FL (80-99); MEAN PLATELET VOLUME 9.1 FL (7.4-10.4); MONOCYTES # (AUTO) 0.1 X 10^3 (0.0-1.0); MONOCYTES % (AUTO) 4 % (0-12); NEUTROPHILS # (AUTO) 2.6 X 10^3 (1.8-7.8); NEUTROPHILS % (AUTO) 82 % (42-75); PLATELET COUNT 158 10^3/uL (130-400); RED BLOOD COUNT 3.46 10^6/uL (4.35-5.85); RED CELL DISTRIBUTION WIDTH 13.2 % (10.0-14.5); WHITE BLOOD COUNT 3.2 10^3/uL (4.3-11.0)
[2018-09-24 10:14] LABS: BUN/CREATININE RATIO 21; CALCIUM 8.7 MG/DL (8.5-10.1); CARBON DIOXIDE 24 MMOL/L (21-32); CHLORIDE 105 MMOL/L (98-107); CREATININE SERUM 0.78 MG/DL (0.60-1.30); GFR ESTIMATED > 60; GLUCOSE 97 MG/DL (70-105); POTASSIUM 3.9 MMOL/L (3.6-5.0); SODIUM 136 MMOL/L (135-145)
[2018-10-01 09:43] LABS: BASOPHILS % (AUTO) 1 % (0-10); EOSINOPHILS # (AUTO) 0.1 10^3/uL (0.0-0.3); EOSINOPHILS % (AUTO) 4 % (0-10); HEMATOCRIT 31 % (35-52); HEMOGLOBIN 9.7 G/DL (11.5-16.0); LYMPHOCYTES # (AUTO) 0.2 X 10^3 (1.0-4.0); LYMPHOCYTES % (AUTO) 8 % (12-44); MEAN CORPUSCULAR HEMOGLOBIN 28 PG (25-34); MEAN CORPUSCULAR HGB CONC 31 G/DL (32-36); MEAN CORPUSCULAR VOLUME 89 FL (80-99); MEAN PLATELET VOLUME 9.2 FL (7.4-10.4); MONOCYTES # (AUTO) 0.2 X 10^3 (0.0-1.0); MONOCYTES % (AUTO) 7 % (0-12); NEUTROPHILS # (AUTO) 1.8 X 10^3 (1.8-7.8); NEUTROPHILS % (AUTO) 81 % (42-75); PLATELET COUNT 126 10^3/uL (130-400); RED BLOOD COUNT 3.52 10^6/uL (4.35-5.85); RED CELL DISTRIBUTION WIDTH 13.7 % (10.0-14.5); WHITE BLOOD COUNT 2.2 10^3/uL (4.3-11.0)
[2018-10-01 10:00] LABS: BUN/CREATININE RATIO 17; CALCIUM 8.6 MG/DL (8.5-10.1); CARBON DIOXIDE 25 MMOL/L (21-32); CHLORIDE 105 MMOL/L (98-107); CREATININE SERUM 0.86 MG/DL (0.60-1.30); GFR ESTIMATED > 60; GLUCOSE 99 MG/DL (70-105); POTASSIUM 3.9 MMOL/L (3.6-5.0); SODIUM 137 MMOL/L (135-145)
[2018-10-09 10:33] LABS: BASOPHILS % (AUTO) 0 % (0-10); EOSINOPHILS % (AUTO) 1 % (0-10); HEMATOCRIT 32 % (35-52); HEMOGLOBIN 10.4 G/DL (11.5-16.0); LYMPHOCYTES # (AUTO) 0.1 X 10^3 (1.0-4.0); LYMPHOCYTES % (AUTO) 8 % (12-44); MEAN CORPUSCULAR HEMOGLOBIN 28 PG (25-34); MEAN CORPUSCULAR HGB CONC 32 G/DL (32-36); MEAN CORPUSCULAR VOLUME 87 FL (80-99); MEAN PLATELET VOLUME 8.6 FL (7.4-10.4); MONOCYTES # (AUTO) 0.1 X 10^3 (0.0-1.0); MONOCYTES % (AUTO) 4 % (0-12); NEUTROPHILS # (AUTO) 1.2 X 10^3 (1.8-7.8); NEUTROPHILS % (AUTO) 87 % (42-75); PLATELET COUNT 58 10^3/uL (130-400); RED CELL DISTRIBUTION WIDTH 14.4 % (10.0-14.5)
[2018-10-09 10:41] LABS: WHITE BLOOD COUNT 1.3 10^3/uL (4.3-11.0)
[2018-10-09 10:56] LABS: ALANINE AMINOTRANSFERASE 10 U/L (0-55); ALBUMIN 3.7 GM/DL (3.2-4.5); ALKALINE PHOSPHATASE 77 U/L (40-136); BILIRUBIN,TOTAL 0.3 MG/DL (0.1-1.0); BUN/CREATININE RATIO 19; CALCIUM 9.3 MG/DL (8.5-10.1); CARBON DIOXIDE 23 MMOL/L (21-32); CHLORIDE 105 MMOL/L (98-107); CREATININE SERUM 0.83 MG/DL (0.60-1.30); GFR ESTIMATED > 60; GLUCOSE 105 MG/DL (70-105); MAGNESIUM 2.1 MG/DL (1.8-2.4); POTASSIUM 4.2 MMOL/L (3.6-5.0); SODIUM 137 MMOL/L (135-145); TOTAL PROTEIN 6.5 GM/DL (6.4-8.2)
[2018-10-16 09:58] LABS: BASOPHILS % (AUTO) 0 % (0-10); EOSINOPHILS % (AUTO) 3 % (0-10); HEMATOCRIT 30 % (35-52); HEMOGLOBIN 9.6 G/DL (11.5-16.0); LYMPHOCYTES # (AUTO) 0.3 X 10^3 (1.0-4.0); LYMPHOCYTES % (AUTO) 32 % (12-44); MEAN CORPUSCULAR HEMOGLOBIN 28 PG (25-34); MEAN CORPUSCULAR HGB CONC 32 G/DL (32-36); MEAN CORPUSCULAR VOLUME 87 FL (80-99); MEAN PLATELET VOLUME 8.5 FL (7.4-10.4); MONOCYTES % (AUTO) 5 % (0-12); NEUTROPHILS # (AUTO) 0.5 X 10^3 (1.8-7.8); NEUTROPHILS % (AUTO) 61 % (42-75); PLATELET COUNT 53 10^3/uL (130-400); RED BLOOD COUNT 3.42 10^6/uL (4.35-5.85); RED CELL DISTRIBUTION WIDTH 14.8 % (10.0-14.5)
[2018-10-16 10:02] LABS: WHITE BLOOD COUNT 0.8 10^3/uL (4.3-11.0)
[2018-10-16 10:28] LABS: ALANINE AMINOTRANSFERASE 9 U/L (0-55); ALBUMIN 3.7 GM/DL (3.2-4.5); ALKALINE PHOSPHATASE 79 U/L (40-136); BILIRUBIN,TOTAL 0.3 MG/DL (0.1-1.0); BUN/CREATININE RATIO 14; CALCIUM 9.2 MG/DL (8.5-10.1); CARBON DIOXIDE 24 MMOL/L (21-32); CHLORIDE 107 MMOL/L (98-107); CREATININE SERUM 0.77 MG/DL (0.60-1.30); GFR ESTIMATED > 60; GLUCOSE 104 MG/DL (70-105); MAGNESIUM 1.9 MG/DL (1.8-2.4); POTASSIUM 3.9 MMOL/L (3.6-5.0); SODIUM 140 MMOL/L (135-145); TOTAL PROTEIN 6.4 GM/DL (6.4-8.2)
[2018-10-22 09:41] LABS: BASOPHILS % (AUTO) 0 % (0-10); EOSINOPHILS % (AUTO) 1 % (0-10); HEMATOCRIT 29 % (35-52); HEMOGLOBIN 9.4 G/DL (11.5-16.0); LYMPHOCYTES # (AUTO) 0.3 X 10^3 (1.0-4.0); LYMPHOCYTES % (AUTO) 28 % (12-44); MEAN CORPUSCULAR HEMOGLOBIN 28 PG (25-34); MEAN CORPUSCULAR HGB CONC 32 G/DL (32-36); MEAN CORPUSCULAR VOLUME 87 FL (80-99); MEAN PLATELET VOLUME 8.3 FL (7.4-10.4); MONOCYTES # (AUTO) 0.2 X 10^3 (0.0-1.0); MONOCYTES % (AUTO) 18 % (0-12); NEUTROPHILS # (AUTO) 0.5 X 10^3 (1.8-7.8); NEUTROPHILS % (AUTO) 53 % (42-75); PLATELET COUNT 128 10^3/uL (130-400); RED BLOOD COUNT 3.35 10^6/uL (4.35-5.85); RED CELL DISTRIBUTION WIDTH 15.6 % (10.0-14.5)
[2018-10-22 09:42] LABS: WHITE BLOOD COUNT 0.9 10^3/uL (4.3-11.0)
[2018-10-22 10:03] LABS: ALANINE AMINOTRANSFERASE 9 U/L (0-55); ALBUMIN 3.6 GM/DL (3.2-4.5); ALKALINE PHOSPHATASE 82 U/L (40-136); BILIRUBIN,TOTAL 0.3 MG/DL (0.1-1.0); BUN/CREATININE RATIO 14; CARBON DIOXIDE 26 MMOL/L (21-32); CHLORIDE 106 MMOL/L (98-107); CREATININE SERUM 0.85 MG/DL (0.60-1.30); GFR ESTIMATED > 60; GLUCOSE 102 MG/DL (70-105); MAGNESIUM 1.7 MG/DL (1.8-2.4); POTASSIUM 3.6 MMOL/L (3.6-5.0); SODIUM 139 MMOL/L (135-145); TOTAL PROTEIN 6.3 GM/DL (6.4-8.2)
[2018-10-29 09:01] LABS: BASOPHILS % (AUTO) 0 % (0-10); EOSINOPHILS % (AUTO) 1 % (0-10); HEMATOCRIT 31 % (35-52); HEMOGLOBIN 9.8 G/DL (11.5-16.0); LYMPHOCYTES # (AUTO) 0.4 X 10^3 (1.0-4.0); LYMPHOCYTES % (AUTO) 16 % (12-44); MEAN CORPUSCULAR HEMOGLOBIN 28 PG (25-34); MEAN CORPUSCULAR HGB CONC 32 G/DL (32-36); MEAN CORPUSCULAR VOLUME 89 FL (80-99); MEAN PLATELET VOLUME 8.7 FL (7.4-10.4); MONOCYTES # (AUTO) 0.3 X 10^3 (0.0-1.0); MONOCYTES % (AUTO) 11 % (0-12); NEUTROPHILS % (AUTO) 72 % (42-75); PLATELET COUNT 206 10^3/uL (130-400); RED BLOOD COUNT 3.48 10^6/uL (4.35-5.85); RED CELL DISTRIBUTION WIDTH 16.6 % (10.0-14.5); WHITE BLOOD COUNT 2.8 10^3/uL (4.3-11.0)
[2018-10-29 09:25] LABS: ALANINE AMINOTRANSFERASE 12 U/L (0-55); ALBUMIN 3.8 GM/DL (3.2-4.5); ALKALINE PHOSPHATASE 82 U/L (40-136); BILIRUBIN,TOTAL 0.3 MG/DL (0.1-1.0); BUN/CREATININE RATIO 12; CALCIUM 9.6 MG/DL (8.5-10.1); CARBON DIOXIDE 24 MMOL/L (21-32); CHLORIDE 106 MMOL/L (98-107); CREATININE SERUM 0.85 MG/DL (0.60-1.30); GFR ESTIMATED > 60; GLUCOSE 106 MG/DL (70-105); POTASSIUM 4.1 MMOL/L (3.6-5.0); SODIUM 139 MMOL/L (135-145); TOTAL PROTEIN 6.7 GM/DL (6.4-8.2)
[~2018-11-02] VITALS: Ht 152.4 cm; Wt 81.2 kg
[~2018-11-02 09:45] MED LIST changes: +ALTEPLASE 2 MG (CATHFLO) CANCER CENTER IV ONE; +CISPLATIN IV SCH; +FAMOTIDINE 20MG/2ML IV (CANCER CTR) IV SCH; +FOSAPREPITANT DIMEGLUMINE 150 MG in NS (IVPB) CANCER CENTER ONLY 150 ML IV SCH; +MAGNESIUM SULFATE IV SCH; +MANNITOL IV SCH; +NS IV 1000 ML (CANCER CTR) IV SCH; +PALONOSETRON HCL 0.25 MG, DEXAMETHASONE INJECTION 10 MG in NS (IVPB) CANCER CENTER 50 ML IV SCH; +[UNRECOGNIZED DRUG - OTHER] IV SCH; +[UNRECOGNIZED DRUG - OTHER] SC SCH; +diphenhydrAMINE 25 MG TAB (BENADRYL) CANCER CENTER PO SCH
== END 2018-11-19 | disposition home or self-care (01) ==
LOC: ONC 09:45
PROVIDERS: ATTEND Internal Medicine Hematology & Oncology
DX: Z51.11 Encounter for antineoplastic chemotherapy (principal); Z51.0 Encounter for antineoplastic radiation therapy; C53.8 Malignant neoplasm of overlapping sites of cervix uteri; C77.2 Secondary and unspecified malignant neoplasm of intra-abdominal lymph nodes; E11.9 Type 2 diabetes mellitus without complications; I10 Essential (primary) hypertension; N13.30 Unspecified hydronephrosis; K59.00 Constipation, unspecified; Z79.84 Long term (current) use of oral hypoglycemic drugs; Z79.899 Other long term (current) drug therapy
CPT/HCPCS: 36415; 36591; 36593; 77300; 77307; 77334; 77336; 77338; 77386; 77417; 77470; 80048; 80053; 83735; 85025; 96367; 96372; 96375; 96413; 99205; 99213; 99214

== ENCOUNTER 2019-01-29 09:10 | Outpatient (RCR) | payer OTHER ==
[2018-11-26 10:22] LABS: BASOPHILS % (AUTO) 0 % (0-10); EOSINOPHILS # (AUTO) 0.3 10^3/uL (0.0-0.3); EOSINOPHILS % (AUTO) 6 % (0-10); HEMATOCRIT 33 % (35-52); HEMOGLOBIN 10.5 G/DL (11.5-16.0); LYMPHOCYTES % (AUTO) 23 % (12-44); MEAN CORPUSCULAR HEMOGLOBIN 29 PG (25-34); MEAN CORPUSCULAR HGB CONC 32 G/DL (32-36); MEAN CORPUSCULAR VOLUME 90 FL (80-99); MEAN PLATELET VOLUME 9.5 FL (7.4-10.4); MONOCYTES # (AUTO) 0.3 X 10^3 (0.0-1.0); MONOCYTES % (AUTO) 7 % (0-12); NEUTROPHILS # (AUTO) 2.9 X 10^3 (1.8-7.8); NEUTROPHILS % (AUTO) 64 % (42-75); PLATELET COUNT 148 10^3/uL (130-400); WHITE BLOOD COUNT 4.5 10^3/uL (4.3-11.0)
[2018-11-26 10:46] LABS: ALANINE AMINOTRANSFERASE 11 U/L (0-55); ALBUMIN 3.8 GM/DL (3.2-4.5); ALKALINE PHOSPHATASE 89 U/L (40-136); BILIRUBIN,TOTAL 0.3 MG/DL (0.1-1.0); BUN/CREATININE RATIO 15; CALCIUM 8.8 MG/DL (8.5-10.1); CARBON DIOXIDE 22 MMOL/L (21-32); CHLORIDE 108 MMOL/L (98-107); CREATININE SERUM 0.92 MG/DL (0.60-1.30); GFR ESTIMATED > 60; GLUCOSE 105 MG/DL (70-105); POTASSIUM 3.8 MMOL/L (3.6-5.0); SODIUM 139 MMOL/L (135-145); TOTAL PROTEIN 6.8 GM/DL (6.4-8.2)
[2018-12-25 11:02] LABS: BASOPHILS % (AUTO) 0 % (0-10); EOSINOPHILS % (AUTO) 1 % (0-10); HEMATOCRIT 30 % (35-52); HEMOGLOBIN 9.4 G/DL (11.5-16.0); LYMPHOCYTES # (AUTO) 0.5 X 10^3 (1.0-4.0); LYMPHOCYTES % (AUTO) 20 % (12-44); MEAN CORPUSCULAR HEMOGLOBIN 29 PG (25-34); MEAN CORPUSCULAR HGB CONC 31 G/DL (32-36); MEAN CORPUSCULAR VOLUME 94 FL (80-99); MEAN PLATELET VOLUME 9.3 FL (7.4-10.4); MONOCYTES # (AUTO) 0.2 X 10^3 (0.0-1.0); MONOCYTES % (AUTO) 7 % (0-12); NEUTROPHILS # (AUTO) 1.9 X 10^3 (1.8-7.8); NEUTROPHILS % (AUTO) 72 % (42-75); PLATELET COUNT 98 10^3/uL (130-400); RED CELL DISTRIBUTION WIDTH 15.8 % (10.0-14.5); WHITE BLOOD COUNT 2.6 10^3/uL (4.3-11.0)
[2018-12-25 11:19] LABS: ALANINE AMINOTRANSFERASE 15 U/L (0-55); ALBUMIN 3.7 GM/DL (3.2-4.5); ALKALINE PHOSPHATASE 102 U/L (40-136); BILIRUBIN,TOTAL 0.3 MG/DL (0.1-1.0); BUN/CREATININE RATIO 16; CALCIUM 8.7 MG/DL (8.5-10.1); CARBON DIOXIDE 24 MMOL/L (21-32); CHLORIDE 108 MMOL/L (98-107); GFR ESTIMATED > 60; GLUCOSE 94 MG/DL (70-105); POTASSIUM 3.9 MMOL/L (3.6-5.0); SODIUM 138 MMOL/L (135-145); TOTAL PROTEIN 6.3 GM/DL (6.4-8.2)
[2019-01-01 09:32] LABS: BASOPHILS % (AUTO) 0 % (0-10); EOSINOPHILS % (AUTO) 1 % (0-10); HEMATOCRIT 31 % (35-52); HEMOGLOBIN 10.1 G/DL (11.5-16.0); LYMPHOCYTES # (AUTO) 0.6 X 10^3 (1.0-4.0); LYMPHOCYTES % (AUTO) 21 % (12-44); MEAN CORPUSCULAR HEMOGLOBIN 30 PG (25-34); MEAN CORPUSCULAR HGB CONC 33 G/DL (32-36); MEAN CORPUSCULAR VOLUME 93 FL (80-99); MEAN PLATELET VOLUME 8.5 FL (7.4-10.4); MONOCYTES # (AUTO) 0.2 X 10^3 (0.0-1.0); MONOCYTES % (AUTO) 6 % (0-12); NEUTROPHILS # (AUTO) 2.2 X 10^3 (1.8-7.8); NEUTROPHILS % (AUTO) 72 % (42-75); PLATELET COUNT 118 10^3/uL (130-400); RED CELL DISTRIBUTION WIDTH 15.4 % (10.0-14.5); WHITE BLOOD COUNT 3.1 10^3/uL (4.3-11.0)
[2019-01-01 09:53] LABS: ALANINE AMINOTRANSFERASE 8 U/L (0-55); ALBUMIN 3.7 GM/DL (3.2-4.5); ALKALINE PHOSPHATASE 82 U/L (40-136); BILIRUBIN,TOTAL 0.3 MG/DL (0.1-1.0); BUN/CREATININE RATIO 20; CALCIUM 9.5 MG/DL (8.5-10.1); CARBON DIOXIDE 25 MMOL/L (21-32); CHLORIDE 107 MMOL/L (98-107); CREATININE SERUM 0.84 MG/DL (0.60-1.30); GFR ESTIMATED > 60; GLUCOSE 98 MG/DL (70-105); POTASSIUM 3.8 MMOL/L (3.6-5.0); SODIUM 140 MMOL/L (135-145); TOTAL PROTEIN 6.4 GM/DL (6.4-8.2)
[2019-01-22 10:59] LABS: BASOPHILS % (AUTO) 1 % (0-10); EOSINOPHILS % (AUTO) 1 % (0-10); HEMATOCRIT 32 % (35-52); HEMOGLOBIN 10.3 G/DL (11.5-16.0); LYMPHOCYTES # (AUTO) 0.7 X 10^3 (1.0-4.0); LYMPHOCYTES % (AUTO) 22 % (12-44); MEAN CORPUSCULAR HEMOGLOBIN 30 PG (25-34); MEAN CORPUSCULAR HGB CONC 32 G/DL (32-36); MEAN CORPUSCULAR VOLUME 94 FL (80-99); MEAN PLATELET VOLUME 9.1 FL (7.4-10.4); MONOCYTES # (AUTO) 0.2 X 10^3 (0.0-1.0); MONOCYTES % (AUTO) 6 % (0-12); NEUTROPHILS # (AUTO) 2.3 X 10^3 (1.8-7.8); NEUTROPHILS % (AUTO) 71 % (42-75); PLATELET COUNT 81 10^3/uL (130-400); RED CELL DISTRIBUTION WIDTH 14.4 % (10.0-14.5); WHITE BLOOD COUNT 3.2 10^3/uL (4.3-11.0)
[2019-01-22 11:20] LABS: ALANINE AMINOTRANSFERASE 10 U/L (0-55); ALBUMIN 3.8 GM/DL (3.2-4.5); ALKALINE PHOSPHATASE 86 U/L (40-136); BILIRUBIN,TOTAL 0.3 MG/DL (0.1-1.0); BUN/CREATININE RATIO 24; CALCIUM 9.1 MG/DL (8.5-10.1); CARBON DIOXIDE 25 MMOL/L (21-32); CHLORIDE 106 MMOL/L (98-107); CREATININE SERUM 0.86 MG/DL (0.60-1.30); GFR ESTIMATED > 60; GLUCOSE 101 MG/DL (70-105); MAGNESIUM 1.9 MG/DL (1.8-2.4); POTASSIUM 3.9 MMOL/L (3.6-5.0); SODIUM 139 MMOL/L (135-145); TOTAL PROTEIN 6.6 GM/DL (6.4-8.2)
[~2019-01-29] VITALS: Ht 152.4 cm; Wt 75.7 kg
[~2019-01-29 09:10] MED LIST changes: +BEVACIZUMAB IV SCH; +CARBOPLATIN IV SCH; -CISPLATIN IV SCH; +D5W IV SCH; -MAGNESIUM SULFATE IV SCH; -MANNITOL IV SCH; +[UNRECOGNIZED DRUG - OTHER] IV SCH; -[UNRECOGNIZED DRUG - OTHER] IV SCH; -[UNRECOGNIZED DRUG - OTHER] SC SCH; +diphenhydrAMINE 50 MG/ML INJ (CANCER CENTER) ONE
[2019-01-29 09:32] LABS: BASOPHILS % (AUTO) 0 % (0-10); EOSINOPHILS # (AUTO) 0.1 10^3/uL (0.0-0.3); EOSINOPHILS % (AUTO) 3 % (0-10); HEMATOCRIT 34 % (35-52); LYMPHOCYTES # (AUTO) 0.7 X 10^3 (1.0-4.0); LYMPHOCYTES % (AUTO) 20 % (12-44); MEAN CORPUSCULAR HEMOGLOBIN 30 PG (25-34); MEAN CORPUSCULAR HGB CONC 32 G/DL (32-36); MEAN CORPUSCULAR VOLUME 94 FL (80-99); MEAN PLATELET VOLUME 8.4 FL (7.4-10.4); MONOCYTES # (AUTO) 0.2 X 10^3 (0.0-1.0); MONOCYTES % (AUTO) 5 % (0-12); NEUTROPHILS # (AUTO) 2.7 X 10^3 (1.8-7.8); NEUTROPHILS % (AUTO) 72 % (42-75); PLATELET COUNT 72 10^3/uL (130-400); RED CELL DISTRIBUTION WIDTH 14.8 % (10.0-14.5); WHITE BLOOD COUNT 3.7 10^3/uL (4.3-11.0)
[2019-01-29 09:59] LABS: BILIRUBIN,TOTAL 0.3 MG/DL (0.1-1.0); CALCIUM 9.5 MG/DL (8.5-10.1); CREATININE SERUM 0.95 MG/DL (0.60-1.30); TOTAL PROTEIN 6.8 GM/DL (6.4-8.2)
[2019-01-29] MEDS ORDERED: PACLITAXEL IV SCH (10:15)
[2019-01-29] MEDS ORDERED: NORMAL SALINE IV SCH (10:15)
== END 2019-02-24 | disposition home or self-care (01) ==
LOC: ONC 09:10
PROVIDERS: ATTEND Internal Medicine Hematology & Oncology
DX: Z51.11 Encounter for antineoplastic chemotherapy (principal); C53.8 Malignant neoplasm of overlapping sites of cervix uteri; C77.2 Secondary and unspecified malignant neoplasm of intra-abdominal lymph nodes; E11.9 Type 2 diabetes mellitus without complications; I10 Essential (primary) hypertension; N13.30 Unspecified hydronephrosis; K59.00 Constipation, unspecified; Z79.84 Long term (current) use of oral hypoglycemic drugs; Z79.899 Other long term (current) drug therapy; Z45.2 Encounter for adjustment and management of vascular access device
CPT/HCPCS: 36415; 36591; 36593; 80053; 83735; 85025; 96367; 96375; 96413; 96415; 96417; 96523; 99213

== ENCOUNTER 2019-05-21 14:03 | Outpatient (RCR) | payer SELFPAY ==
[2019-02-26 11:14] LABS: BASOPHILS % (AUTO) 0 % (0-10); EOSINOPHILS # (AUTO) 0.1 10^3/uL (0.0-0.3); EOSINOPHILS % (AUTO) 1 % (0-10); HEMATOCRIT 34 % (35-52); LYMPHOCYTES # (AUTO) 0.8 X 10^3 (1.0-4.0); LYMPHOCYTES % (AUTO) 24 % (12-44); MEAN CORPUSCULAR HEMOGLOBIN 30 PG (25-34); MEAN CORPUSCULAR HGB CONC 32 G/DL (32-36); MEAN CORPUSCULAR VOLUME 95 FL (80-99); MEAN PLATELET VOLUME 8.9 FL (7.4-10.4); MONOCYTES # (AUTO) 0.2 X 10^3 (0.0-1.0); MONOCYTES % (AUTO) 7 % (0-12); NEUTROPHILS # (AUTO) 2.4 X 10^3 (1.8-7.8); NEUTROPHILS % (AUTO) 68 % (42-75); PLATELET COUNT 76 10^3/uL (130-400); RED CELL DISTRIBUTION WIDTH 15.3 % (10.0-14.5); WHITE BLOOD COUNT 3.5 10^3/uL (4.3-11.0)
[2019-02-26 11:27] LABS: ALANINE AMINOTRANSFERASE 16 U/L (0-55); ALBUMIN 3.9 GM/DL (3.2-4.5); ALKALINE PHOSPHATASE 74 U/L (40-136); BILIRUBIN,TOTAL 0.3 MG/DL (0.1-1.0); BUN/CREATININE RATIO 27; CALCIUM 9.5 MG/DL (8.5-10.1); CARBON DIOXIDE 27 MMOL/L (21-32); CHLORIDE 106 MMOL/L (98-107); CREATININE SERUM 0.88 MG/DL (0.60-1.30); GFR ESTIMATED > 60; GLUCOSE 107 MG/DL (70-105); POTASSIUM 4.6 MMOL/L (3.6-5.0); SODIUM 141 MMOL/L (135-145); TOTAL PROTEIN 6.6 GM/DL (6.4-8.2)
[~2019-05-21 14:03] MED LIST changes: -ALTEPLASE 2 MG (CATHFLO) CANCER CENTER IV ONE; -CARBOPLATIN IV SCH; -D5W IV SCH; +NORMAL SALINE IV SCH; +PACLITAXEL IV SCH; -diphenhydrAMINE 50 MG/ML INJ (CANCER CENTER) ONE
[2019-05-21 14:34] LABS: BASOPHILS % (AUTO) 0 % (0-10); EOSINOPHILS # (AUTO) 0.1 10^3/uL (0.0-0.3); EOSINOPHILS % (AUTO) 2 % (0-10); HEMATOCRIT 39 % (35-52); HEMOGLOBIN 12.3 G/DL (11.5-16.0); LYMPHOCYTES # (AUTO) 1.2 X 10^3 (1.0-4.0); LYMPHOCYTES % (AUTO) 25 % (12-44); MEAN CORPUSCULAR HEMOGLOBIN 31 PG (25-34); MEAN CORPUSCULAR HGB CONC 32 G/DL (32-36); MEAN CORPUSCULAR VOLUME 96 FL (80-99); MEAN PLATELET VOLUME 8.9 FL (7.4-10.4); MONOCYTES # (AUTO) 0.2 X 10^3 (0.0-1.0); MONOCYTES % (AUTO) 5 % (0-12); NEUTROPHILS # (AUTO) 3.2 X 10^3 (1.8-7.8); NEUTROPHILS % (AUTO) 68 % (42-75); PLATELET COUNT 126 10^3/uL (130-400); RED CELL DISTRIBUTION WIDTH 13.5 % (10.0-14.5); WHITE BLOOD COUNT 4.7 10^3/uL (4.3-11.0)
[2019-05-21 14:57] LABS: BILIRUBIN,TOTAL 0.4 MG/DL (0.1-1.0); CALCIUM 9.5 MG/DL (8.5-10.1); CREATININE SERUM 0.98 MG/DL (0.60-1.30); POTASSIUM 4.1 MMOL/L (3.6-5.0); TOTAL PROTEIN 6.9 GM/DL (6.4-8.2)
== END 2019-05-27 | disposition home or self-care (01) ==
LOC: ONC 14:03
PROVIDERS: ATTEND Internal Medicine Hematology & Oncology
DX: C53.8 Malignant neoplasm of overlapping sites of cervix uteri (principal); C77.2 Secondary and unspecified malignant neoplasm of intra-abdominal lymph nodes; E11.9 Type 2 diabetes mellitus without complications; I10 Essential (primary) hypertension; N13.30 Unspecified hydronephrosis; K59.00 Constipation, unspecified; Z79.84 Long term (current) use of oral hypoglycemic drugs; Z79.899 Other long term (current) drug therapy; Z45.2 Encounter for adjustment and management of vascular access device
CPT/HCPCS: 36415; 80053; 83735; 85025; 96523

== ENCOUNTER → 2019-07-23 | Outpatient (CLI) | payer SELFPAY ==
[~2019-07-23] MED LIST changes: -BEVACIZUMAB IV SCH; -FAMOTIDINE 20MG/2ML IV (CANCER CTR) IV SCH; -FOSAPREPITANT DIMEGLUMINE 150 MG in NS (IVPB) CANCER CENTER ONLY 150 ML IV SCH; +HOLD METFORMIN - RECEIVED CONTRAST 20 ML VIAL IV SCH; +IOHEXOL 350 MG/ML 100 ML (OMNIPAQUE 350) VIAL IV ONE; -NORMAL SALINE IV SCH; +NS 100 ML (IVPB) BAG IV ONE; -NS IV 1000 ML (CANCER CTR) IV SCH; -PACLITAXEL IV SCH; -PALONOSETRON HCL 0.25 MG, DEXAMETHASONE INJECTION 10 MG in NS (IVPB) CANCER CENTER 50 ML IV SCH; -[UNRECOGNIZED DRUG - OTHER] IV SCH; -diphenhydrAMINE 25 MG TAB (BENADRYL) CANCER CENTER PO SCH
--- NOTE | 2019-07-23 15:48 | Diagnostic Imaging Report ---
PROCEDURE: CT chest, abdomen, and pelvis with contrast. TECHNIQUE: Multiple contiguous axial images were obtained through the chest, abdomen, and pelvis after the administration of intravenous contrast. Auto Exposure Controls were utilized during the CT exam to meet ALARA standards for radiation dose reduction. INDICATION: Cervical carcinoma. Patient complaining of back pain and pelvic pain. COMPARISON: Correlation is made with prior PET/CT study from 09/04/[address] from 07/13/2018. FINDINGS: CT CHEST: A right chest wall port appears to have the tip in the upper SVC. No axillary lymphadenopathy is detected. No definite mediastinal or hilar lymphadenopathy is detected. No pericardial or pleural fluid is identified. No pulmonary infiltrates or masses are seen. IMPRESSION: No evidence of thoracic lymphadenopathy or pulmonary metastatic disease. CT ABDOMEN AND PELVIS: No discrete liver mass is identified. The gallbladder is unremarkable. No biliary duct dilatation is seen. The pancreas and spleen are unremarkable. No adrenal mass is detected. Right kidney is atrophic. Degree of hydronephrosis noted on prior study is less. The left kidney is unremarkable. Aorta is non-aneurysmal. No definite central retroperitoneal lymphadenopathy is seen on today's study. No definite iliac or inguinal lymphadenopathy is seen. The bladder is unremarkable. Small and large bowel loops are nonobstructed. Bulky mass seen in the midline of the pelvis on prior study appears to be significantly reduced in size. IMPRESSION: Overall significant improved appearance to the abdomen and pelvis when compared with prior study dating back to August 2018. Previously noted central retroperitoneal and iliac lymphadenopathy has resolved. Bulky mass midline in the pelvis has significantly decreased in size. No hydronephrosis is seen on today's exam. No new abnormality is detected. Dictated by: Dictated on workstation # [id number]
== END ==
LOC: RAD 15:01
PROVIDERS: ATTEND Internal Medicine Hematology & Oncology
DX: C53.9 Malignant neoplasm of cervix uteri, unspecified (principal); R19.00 Intra-abdominal and pelvic swelling, mass and lump, unspecified site
CPT/HCPCS: 71260; 74177

== ENCOUNTER 2019-07-30 13:00 | Outpatient (RCR) | payer SELFPAY ==
[2019-07-23 12:58] LABS: BASOPHILS % (AUTO) 0 % (0-10); EOSINOPHILS # (AUTO) 0.1 10^3/uL (0.0-0.3); EOSINOPHILS % (AUTO) 3 % (0-10); HEMATOCRIT 38 % (35-52); HEMOGLOBIN 11.9 G/DL (11.5-16.0); LYMPHOCYTES # (AUTO) 1.1 X 10^3 (1.0-4.0); LYMPHOCYTES % (AUTO) 25 % (12-44); MEAN CORPUSCULAR HEMOGLOBIN 30 PG (25-34); MEAN CORPUSCULAR HGB CONC 32 G/DL (32-36); MEAN CORPUSCULAR VOLUME 95 FL (80-99); MONOCYTES # (AUTO) 0.3 X 10^3 (0.0-1.0); MONOCYTES % (AUTO) 6 % (0-12); NEUTROPHILS # (AUTO) 2.8 X 10^3 (1.8-7.8); NEUTROPHILS % (AUTO) 66 % (42-75); PLATELET COUNT 148 10^3/uL (130-400); RED CELL DISTRIBUTION WIDTH 14.2 % (10.0-14.5); WHITE BLOOD COUNT 4.3 10^3/uL (4.3-11.0)
[2019-07-23 13:15] LABS: ALANINE AMINOTRANSFERASE 15 U/L (0-55); ALBUMIN 3.9 GM/DL (3.2-4.5); ALKALINE PHOSPHATASE 86 U/L (40-136); BILIRUBIN,TOTAL 0.4 MG/DL (0.1-1.0); BUN/CREATININE RATIO 25; CALCIUM 9.1 MG/DL (8.5-10.1); CARBON DIOXIDE 25 MMOL/L (21-32); CHLORIDE 108 MMOL/L (98-107); CREATININE SERUM 0.84 MG/DL (0.60-1.30); GFR ESTIMATED > 60; GLUCOSE 92 MG/DL (70-105); POTASSIUM 4.2 MMOL/L (3.6-5.0); SODIUM 139 MMOL/L (135-145); TOTAL PROTEIN 6.6 GM/DL (6.4-8.2)
[~2019-07-30 13:00] MED LIST changes: -HOLD METFORMIN - RECEIVED CONTRAST 20 ML VIAL IV SCH; -IOHEXOL 350 MG/ML 100 ML (OMNIPAQUE 350) VIAL IV ONE; -NS 100 ML (IVPB) BAG IV ONE
== END 2019-09-03 | disposition home or self-care (01) ==
LOC: ONC 13:00
PROVIDERS: ATTEND Internal Medicine Hematology & Oncology
DX: C53.8 Malignant neoplasm of overlapping sites of cervix uteri (principal); C77.2 Secondary and unspecified malignant neoplasm of intra-abdominal lymph nodes; E11.9 Type 2 diabetes mellitus without complications; I10 Essential (primary) hypertension; N13.30 Unspecified hydronephrosis; K59.00 Constipation, unspecified; Z79.84 Long term (current) use of oral hypoglycemic drugs; Z79.899 Other long term (current) drug therapy
CPT/HCPCS: 36415; 80053; 85025; 99213

== ENCOUNTER → 2019-12-25 | Outpatient (CLI) | payer BC ==
[~2019-12-25] MED LIST changes: +CATHETER FLUSH 10 ML SYR IV PRN; +IOHEXOL 300 MG/ML 50 ML (OMNIPAQUE 300) VIAL IV ONE
--- NOTE | 2019-12-25 11:20 | Diagnostic Imaging Report ---
INDICATION: [id number] evaluation. FINDINGS: Single view of the chest was performed. Injection port at the power port has migrated inferiorly down the chest and withdrawn the catheter presumably out of the vessel. This is approximately 10 to 11 cm caudal from its original location. Findings were discussed directly with Dr. Gonzalez. IMPRESSION: Abnormal positioning of PowerPort injector as described. Dictated by: Dictated on workstation # [id number]
== END ==
LOC: RAD 10:21
PROVIDERS: ATTEND Surgery
DX: Z45.2 Encounter for adjustment and management of vascular access device (principal)
CPT/HCPCS: 36598

== ENCOUNTER 2019-12-30 13:52 | Outpatient (RCR) | payer BC, OTHER ==
[2019-10-22 13:57] LABS: BASOPHILS % (AUTO) 0 % (0-10); EOSINOPHILS # (AUTO) 0.1 10^3/uL (0.0-0.3); EOSINOPHILS % (AUTO) 2 % (0-10); HEMATOCRIT 38 % (35-52); HEMOGLOBIN 11.9 G/DL (11.5-16.0); LYMPHOCYTES # (AUTO) 1.5 X 10^3 (1.0-4.0); LYMPHOCYTES % (AUTO) 30 % (12-44); MEAN CORPUSCULAR HEMOGLOBIN 30 PG (25-34); MEAN CORPUSCULAR HGB CONC 31 G/DL (32-36); MEAN CORPUSCULAR VOLUME 96 FL (80-99); MEAN PLATELET VOLUME 8.5 FL (7.4-10.4); MONOCYTES # (AUTO) 0.2 X 10^3 (0.0-1.0); MONOCYTES % (AUTO) 4 % (0-12); NEUTROPHILS # (AUTO) 3.3 X 10^3 (1.8-7.8); NEUTROPHILS % (AUTO) 65 % (42-75); PLATELET COUNT 173 10^3/uL (130-400); RED CELL DISTRIBUTION WIDTH 13.8 % (10.0-14.5); WHITE BLOOD COUNT 5.1 10^3/uL (4.3-11.0)
[2019-10-22 14:17] LABS: ALBUMIN 4.3 GM/DL (3.2-4.5); BILIRUBIN,TOTAL 0.5 MG/DL (0.1-1.0); CALCIUM 9.7 MG/DL (8.5-10.1); CREATININE SERUM 0.99 MG/DL (0.60-1.30); POTASSIUM 4.1 MMOL/L (3.6-5.0); TOTAL PROTEIN 7.4 GM/DL (6.4-8.2)
[~2019-12-30] VITALS: Ht 152.4 cm; Wt 73.9 kg
[~2019-12-30 13:52] MED LIST changes: -CATHETER FLUSH 10 ML SYR IV PRN; +FAMOTIDINE 20MG/2ML IV (CANCER CTR) IV SCH; -IOHEXOL 300 MG/ML 50 ML (OMNIPAQUE 300) VIAL IV ONE; +NS IV 1000 ML (CANCER CTR) IV SCH; +PALONOSETRON HCL 0.25 MG, DEXAMETHASONE INJECTION 10 MG in NS (IVPB) CANCER CENTER 50 ML IV SCH; +diphenhydrAMINE 25 MG TAB (BENADRYL) CANCER CENTER PO SCH
== END 2020-01-20 | disposition home or self-care (01) ==
LOC: ONC 13:52
PROVIDERS: ATTEND Internal Medicine Hematology & Oncology
DX: C53.8 Malignant neoplasm of overlapping sites of cervix uteri (principal); C77.2 Secondary and unspecified malignant neoplasm of intra-abdominal lymph nodes; E11.9 Type 2 diabetes mellitus without complications; I10 Essential (primary) hypertension; N13.30 Unspecified hydronephrosis; K59.00 Constipation, unspecified; Z79.84 Long term (current) use of oral hypoglycemic drugs; Z79.899 Other long term (current) drug therapy
CPT/HCPCS: 80053; 85025; 99213

== ENCOUNTER 2019-12-31 10:16 | Outpatient (CLI) | payer BC ==
[~2019-12-31] VITALS: Ht 160 cm; Wt 74.5 kg
[~2019-12-31 10:16] MED LIST changes: -FAMOTIDINE 20MG/2ML IV (CANCER CTR) IV SCH; -NS IV 1000 ML (CANCER CTR) IV SCH; -PALONOSETRON HCL 0.25 MG, DEXAMETHASONE INJECTION 10 MG in NS (IVPB) CANCER CENTER 50 ML IV SCH; -diphenhydrAMINE 25 MG TAB (BENADRYL) CANCER CENTER PO SCH
== END 2019-12-31 12:53 | disposition home or self-care (01) ==
LOC: PREOP 10:16
PROVIDERS: ATTEND Surgery
DX: Z01.818 Encounter for other preprocedural examination (principal)

== ENCOUNTER 2020-01-01 09:23 | Day surgery (SDC) | payer BC ==
[~2020-01-01] VITALS: Ht 160 cm; Wt 74.5 kg
[2020-01-01] VITALS (7 sets, daily range): BP systolic 116–143; BP diastolic 71–86
[2020-01-01] MEDS ORDERED: LACTATED RINGERS 1,000 ML IV PRN (09:32)
[2020-01-01] MEDS ORDERED: ceFAZolin 2 GM/50 ML NS 50 ML IV ONE (09:45)
[2020-01-01] MEDS ORDERED: CATHETER FLUSH 10 ML SYR IV PRN (09:45)
[2020-01-01] MEDS ORDERED: 0.9% SODIUM CHLORIDE PF INJ 20 ML VIAL ONE (09:53)
[2020-01-01] MEDS ORDERED: HEParin (CENTRAL IV FLUSH) 500 UNIT/5 ML SYR ONE (09:53)
[2020-01-01] MEDS ORDERED: BUP/EPI 0.5% 1:200,000 (SENSORCAINE) 30 ML VIAL ONE (09:53)
[2020-01-01] MEDS ORDERED: MIDAZOLAM 2 MG/2 ML (VERSED) VIAL ONE (10:42)
[2020-01-01] MEDS ORDERED: PROPOFOL INJECTION 50 ML IV ONE ×2 (10:42→11:36)
--- NOTE | 2020-01-01 10:58 | Progress Note-Pre Operative ---
Pre-Operative Progress Note H&P Reviewed The H&P was reviewed, patient examined and no changes noted. Time Seen by Provider: 09:26 Date H&P Reviewed: Jan 01, 2020 Time H&P Reviewed: :27 Pre-Operative Diagnosis: Cervical CA, Venous insufficiency ALEA JHA DO Jan 01, 2020 10:58
--- NOTE | 2020-01-01 11:54 | Progress Note-Post Operative ---
Post-Operative Progess Note Surgeon (s)/Ground Crew Supervisor (s) Surgeon ALEA JHA DO Ground Crew Supervisor: ANGEL LUIS Posada Pre-Operative Diagnosis Cervical CA, Venous insufficiency Post-Operative Diagnosis same plus non-fxning port Procedure & Operative Findings Date of Procedure 01/01/20 Procedure Performed/Findings Wayne-cath removal Wayne-cath placement Anesthesia Type IV sedation by HR REPRESENTATIVE Estimated Blood Loss Estimated blood loss (mL): scant Specimens/Packing Specimens Removed wayne-cath ALEA JHA DO Jan 01, 2020 11:54
--- NOTE | 2020-01-01 11:56 | Discharge Inst-Surgical ---
Discharge Inst-Surgical Depart Medication/Instructions New, Converted or Re-Newed RX: Other (use ibuprofen or tylenol at home for pain) Patient Instructions Follow up Appt: Make appointment for 1 week. [phone] Instructions: May shower in 24 hours, no tub bath or soaking. Use incentive spirometer at home as directed. No Smoking Skin/Wound Care: May remove bandages in am. You need to leave the Dermabond on incision it will fall off on it's own. Symptoms to Report: Appetite Changes, Extremity Discoloration, Numbness/Tingling, Swelling Increased, Bleeding Excessive, Eyesight Changes, Pain Increased, Urine Color Change, Constipation(Persistent), Fever over 101 degree F, Pain/Pressure in chest, Urinating Difficulty, Cough Up/Vomit Blood, Heart Beat Irreg/Pounding, Pain/Pressure in jaw, Cramps in feet or legs, Lightheadedness, Pain/Pressure in shoulder, Diarrhea(Persistent), Memory Changes Suddenly, Questions/Concerns, Weight gain consecutive days, Dizziness/Fainting, Nausea/Vomiting, Shortness of Breath, Weight gain over 2 pounds If questions or concerns contact your physician Or seek help at emergency department. Activity Activity as Tolerated: Yes Activity Instructions: Avoid Stress to Incision Driving Instructions: No Driving/Refer to Diet Discharge Diet: No Restrictions Diet After 24 Hours: Clear Liquid if Nauseous If Any Problems/Questions/Issu: Contact Your Physician, Go to Emergency Room Skin/Wound Care Infection Signs and Symptoms: Increased Redness, Foul Odor of Wound, Increased Drainage, Skin Itchy or Has a Rash, Increased Swelling, Temperature Above 101 F Stitches/Anna/Dermabond Dis: Dermabond Ice Pack: Ice On and Off Site (as needed for pain) ALEA JHA DO Jan 01, 2020 11:56
[2020-01-01] MEDS ORDERED: HYDROmorphone 2 MG/ML VIAL (DILAUDID) IV ONE (12:00)
[2020-01-01] MEDS ORDERED: ONDANSETRON 4 MG/2 ML (SDV) Z0FRAN IVP PRN (12:00)
--- NOTE | 2020-01-01 12:14 | Diagnostic Imaging Report ---
INDICATION: Fluoroscopy for catheter removal and placement. FINDINGS: Four seconds of fluoroscopy time were utilized during catheter exchange. IMPRESSION: 4 seconds of fluoroscopy. Dictated by: Dictated on workstation # [id number]
[2020-01-01] MEDS ORDERED: ACETAMINOPHEN 500 MG TAB (TYLENOL) ONE (12:28)
[2020-01-01] MEDS ORDERED: ACETAMINOPHEN 500 MG TAB (TYLENOL) PO ONE (12:45)
--- NOTE | 2020-01-01 13:02 | Anesthesia-General Post-Op ---
MAC Patient Condition Mental Status/LOC: Same as Preop Cardiovascular: Satisfactory Nausea/Vomiting: Absent Respiratory: Satisfactory Pain: Controlled Complications: Absent Post Op Complications Complications None Follow Up Care/Instructions Patient Instructions None needed. Anesthesiology Discharge Order Discharge Order Patient is doing well, no complaints, stable vital signs, no apparent adverse anesthesia problems. No complications reported per nursing. OSEAS CARDENAS CRNA Jan 01, 2020 13:02
--- NOTE | 2020-01-01 23:45 | OPERATIVE REPORT ---
DATE OF SERVICE: PREOPERATIVE DIAGNOSES: Port-A-Cath malfunction as well as venous insufficiency and cervical cancer. POSTOPERATIVE DIAGNOSES: Port-A-Cath malfunction as well as venous insufficiency and cervical cancer. PROCEDURES: 1. Removal of Port-A-Cath from right anterior chest wall. 2. Placement of Port-A-Cath left anterior chest wall, left subclavian vein. SURGEON: Crispin Gonzalez DO [employer]BESTOS ABATEMENT TECHNICIAN: Shireen Harris, MS3 ANESTHESIA: IV sedation by [employer]. SPECIMEN: Port-A-Cath removed, but not sent to pathology. BLOOD LOSS: Scant. FLUIDS: Per anesthesia. POSTOPERATIVE CONDITION: Stable. INDICATION FOR PROCEDURE: The patient is a 64-year-old female who unfortunately has cervical cancer that has started to return and needs due to chemotherapy. Unfortunately, she had a Port-A-Cath was placed on the right side looked like it migrated and was not functioning, needed this removed and one placed on the left side. FINDINGS: The patient had a Port-A-Cath removed from the right side and a new one placed on the left side. PROCEDURE NOTE: After informed consent was obtained, the patient was brought to the operating room, placed on the operating table in supine position. She was sterilely prepped and draped in normal fashion. Local lidocaine was used to infiltrate the skin, was started on the right side, infiltrated the skin under the previous incision and then made an incision #11 blade, carried down through the skin and subcutaneous tissue, deepened down to subcutaneous tissue with Bovie electrocautery down to the catheter, can see the catheter and then carefully started pulling this out gently, able to remove this without any difficulty, completely came out and then started dissecting out the port with a Bovie electrocautery, which was completely removed, obtained hemostasis using Bovie electrocautery and then irrigated with normal saline and then closed the tissue with 3 interrupted 4-0 undyed Vicryl subcuticular stitches. Turned my attention to the left side. The patient was placed in Trendelenburg and infiltrated the anterior chest wall as well as towards the clavicle with a lidocaine, then advanced a 20-gauge finder needle cannulated the subclavian vein on the first attempt. Good flash of blood, removed the syringe and placed a guidewire down the dilator using Seldinger technique and then checked with fluoroscopy, it was in good position, then placed a dilator over this and then removed the inner portion of the sheath and the wire and then new guidewire through this using the Seldinger technique and checked for fluoroscopy, it was in good position. Held this in place with a hemostat and then made a stab incision at the guidewire and then in the left anterior chest wall, made an incision with #11 blade, carried down to skin into subcutaneous tissue and deepened down to subcutaneous tissue with Bovie electrocautery down to the pectoralis major fascia and then placed a 3-0 Prolene suture here and then tunneled the catheter from the stab incision into the pocket created in the chest wall and then over the guidewire placed a dilator using Seldinger technique, it went in easily, checked with fluoroscopy, it was in good position. I removed the inner portion of the dilator sheath and the guidewire and then placed the catheter down the dilator sheath using the Seldinger technique, it went in easily, checked fluoroscopy, it was in good position. I removed the dilator sheath and then attached the catheter to the port and then placed a locking mechanism and then accessed the port with Davis needle, aspirated, got a good flush of blood then easily flushed with saline, then aspirated and easily flushed with heparin checked again with fluoroscopy and this was in good position. No kinks at the connection from the port to the catheter. At this point, then closed the incision closing the subcutaneous tissue with 3-0 Vicryl, 2 interrupted sutures and closed the skin with 4-0 undyed Monocryl 3 interrupted subcuticular stitches. Area was cleaned and dried and Dermabond placed on both sides as well as Band-Aids. The patient tolerated the procedure. Sponge, instrument and needle count correct at the end of the case. Job ID: [id number] DocumentID: [id number] Dictated Date: 01/01/2020 12:01:18 Rn Ccu Date: 01/01/2020 19:57:14 Dictated By: CRISPIN GONZALEZ DO
== END 2020-01-01 13:25 | disposition home or self-care (01) ==
LOC: SDC 09:23
PROVIDERS: ATTEND Surgery
DX: T85.618A Breakdown (mechanical) of other specified internal prosthetic devices, implants and grafts, initial encounter (principal); I87.2 Venous insufficiency (chronic) (peripheral); C53.9 Malignant neoplasm of cervix uteri, unspecified; I10 Essential (primary) hypertension; E11.9 Type 2 diabetes mellitus without complications; D64.81 Anemia due to antineoplastic chemotherapy; Z79.891 Long term (current) use of opiate analgesic; Z79.899 Other long term (current) drug therapy; Z80.6 Family history of leukemia
CPT/HCPCS: 87081

== ENCOUNTER → 2020-03-23 | Outpatient (CLI) | payer BC ==
[~2020-03-23] MED LIST changes: +IOHEXOL 240 MGI/ML 50 ML (OMNIPAQUE) VIAL IV ONE
--- NOTE | 2020-03-23 12:37 | Diagnostic Imaging Report ---
INDICATION: Malfunctioning chest wall port. Patient presents for port check using fluoroscopic guidance. Patient brought to the fluoroscopic suite and placed on table in the supine position. Nuclear Radiation Engineer radiograph the chest was obtained. The patient's left chest wall port was accessed. A small amount of Omnipaque 240 contrast was injected under fluoroscopic observation. Total of 30 seconds of fluoroscopic time was utilized. Nuclear Radiation Engineer radiograph does demonstrate a fractured port in the mid aspect. The free floating distal fragment measures at least 11 to 12 cm long. At the distal tip of the catheter fragment overlies the SVC. The proximal portion of the fragment has the tip at the level of the medial left subclavian vein. The port hub overlies the left mid chest with the tip at the level of the mid left subclavian vein. A small amount of contrast was injected. Contrast does extravasate about the port hub. There is also some extravasation about the tip of the catheter which appears to be in soft tissue. No intravascular component within the proximal port tubing is seen. IMPRESSION: Fractured left chest wall port, as described. The distal free-floating catheter fragment is approximately 11 to 12 cm long with the distal tip at the level of the SVC right atrial junction. Surgical as well as interventional radiological consultation is recommended. Results were discussed with Dr. Mckeon prior to this dictation. Dictated by: Dictated on workstation # [id number]
== END | disposition home or self-care (01) ==
LOC: RAD 11:25
PROVIDERS: ATTEND Internal Medicine Hematology & Oncology
DX: T82.599A Other mechanical complication of unspecified cardiac and vascular devices and implants, initial encounter (principal); Z98.890 Other specified postprocedural states; Z95.828 Presence of other vascular implants and grafts
CPT/HCPCS: 36598

== ENCOUNTER → 2020-04-14 | Outpatient (CLI) | payer BC ==
--- NOTE | 2020-04-14 12:03 | Diagnostic Imaging Report ---
EXAMINATION: Fluoroscopy. INDICATION: Check Port-A-Cath patency. FINDINGS: The preliminary film reveals that there is a Port-A-Cath in place on the left. Contrast was injected into the Port-A-Cath. The contrast was seen to extend through the Port-A-Cath. 1 minute and 3 seconds of fluoroscopy time was utilized. IMPRESSION: 1. The Port-A-Cath is patent. 2. These results were called to Dr. Mckeon. Dictated by: Dictated on workstation # [id number]
== END ==
LOC: RAD 10:37
PROVIDERS: ATTEND Internal Medicine Hematology & Oncology
DX: T82.599A Other mechanical complication of unspecified cardiac and vascular devices and implants, initial encounter (principal); Z95.828 Presence of other vascular implants and grafts
CPT/HCPCS: 36598

== ENCOUNTER 2020-04-28 09:11 | Outpatient (RCR) | payer BC ==
[2020-02-06 11:04] LABS: BASOPHILS % (AUTO) 0 % (0-10); EOSINOPHILS % (AUTO) 0 % (0-10); HEMATOCRIT 36 % (35-52); HEMOGLOBIN 11.3 G/DL (11.5-16.0); LYMPHOCYTES % (AUTO) 9 % (12-44); MEAN CORPUSCULAR HEMOGLOBIN 30 PG (25-34); MEAN CORPUSCULAR HGB CONC 31 G/DL (32-36); MEAN CORPUSCULAR VOLUME 94 FL (80-99); MEAN PLATELET VOLUME 8.9 FL (7.4-10.4); MONOCYTES # (AUTO) 0.1 X 10^3 (0.0-1.0); MONOCYTES % (AUTO) 1 % (0-12); NEUTROPHILS # (AUTO) 9.9 X 10^3 (1.8-7.8); NEUTROPHILS % (AUTO) 90 % (42-75); PLATELET COUNT 202 10^3/uL (130-400); RED CELL DISTRIBUTION WIDTH 13.7 % (10.0-14.5)
[2020-02-06 11:27] LABS: ALBUMIN 4.3 GM/DL (3.2-4.5); BILIRUBIN,TOTAL 0.5 MG/DL (0.1-1.0); CALCIUM 9.8 MG/DL (8.5-10.1); CREATININE SERUM 0.95 MG/DL (0.60-1.30); POTASSIUM 3.7 MMOL/L (3.6-5.0); TOTAL PROTEIN 7.3 GM/DL (6.4-8.2)
[2020-02-26 11:04] LABS: BASOPHILS % (AUTO) 0 % (0-10); EOSINOPHILS % (AUTO) 0 % (0-10); HEMATOCRIT 38 % (35-52); HEMOGLOBIN 11.9 G/DL (11.5-16.0); LYMPHOCYTES % (AUTO) 11 % (12-44); MEAN CORPUSCULAR HEMOGLOBIN 29 PG (25-34); MEAN CORPUSCULAR HGB CONC 32 G/DL (32-36); MEAN CORPUSCULAR VOLUME 93 FL (80-99); MEAN PLATELET VOLUME 8.9 FL (7.4-10.4); MONOCYTES % (AUTO) 0 % (0-12); NEUTROPHILS # (AUTO) 7.6 X 10^3 (1.8-7.8); NEUTROPHILS % (AUTO) 89 % (42-75); PLATELET COUNT 202 10^3/uL (130-400); RED CELL DISTRIBUTION WIDTH 14.2 % (10.0-14.5); WHITE BLOOD COUNT 8.6 10^3/uL (4.3-11.0)
[2020-02-26 11:32] LABS: ALANINE AMINOTRANSFERASE 12 U/L (0-55); ALBUMIN 4.3 GM/DL (3.2-4.5); ALKALINE PHOSPHATASE 90 U/L (40-136); BILIRUBIN,TOTAL 0.5 MG/DL (0.1-1.0); BUN/CREATININE RATIO 20; CALCIUM 10.1 MG/DL (8.5-10.1); CARBON DIOXIDE 23 MMOL/L (21-32); CHLORIDE 103 MMOL/L (98-107); CREATININE SERUM 0.88 MG/DL (0.60-1.30); GFR ESTIMATED > 60; GLUCOSE 230 MG/DL (70-105); SODIUM 137 MMOL/L (135-145); TOTAL PROTEIN 7.7 GM/DL (6.4-8.2)
[2020-03-23 11:45] LABS: BASOPHILS % (AUTO) 0 % (0-10); EOSINOPHILS # (AUTO) 0.1 10^3/uL (0.0-0.3); EOSINOPHILS % (AUTO) 2 % (0-10); HEMATOCRIT 36 % (35-52); HEMOGLOBIN 11.3 G/DL (11.5-16.0); LYMPHOCYTES # (AUTO) 1.1 X 10^3 (1.0-4.0); LYMPHOCYTES % (AUTO) 22 % (12-44); MEAN CORPUSCULAR HEMOGLOBIN 30 PG (25-34); MEAN CORPUSCULAR HGB CONC 32 G/DL (32-36); MEAN CORPUSCULAR VOLUME 94 FL (80-99); MONOCYTES # (AUTO) 0.3 X 10^3 (0.0-1.0); MONOCYTES % (AUTO) 5 % (0-12); NEUTROPHILS # (AUTO) 3.6 X 10^3 (1.8-7.8); NEUTROPHILS % (AUTO) 70 % (42-75); PLATELET COUNT 136 10^3/uL (130-400); RED CELL DISTRIBUTION WIDTH 15.5 % (10.0-14.5); WHITE BLOOD COUNT 5.1 10^3/uL (4.3-11.0)
[2020-03-23 12:03] LABS: ALANINE AMINOTRANSFERASE 9 U/L (0-55); ALBUMIN 3.8 GM/DL (3.2-4.5); ALKALINE PHOSPHATASE 82 U/L (40-136); BILIRUBIN,TOTAL 0.3 MG/DL (0.1-1.0); BUN/CREATININE RATIO 22; CALCIUM 9.1 MG/DL (8.5-10.1); CARBON DIOXIDE 23 MMOL/L (21-32); CHLORIDE 107 MMOL/L (98-107); CREATININE SERUM 0.79 MG/DL (0.60-1.30); GFR ESTIMATED > 60; GLUCOSE 102 MG/DL (70-105); POTASSIUM 3.6 MMOL/L (3.6-5.0); SODIUM 140 MMOL/L (135-145); TOTAL PROTEIN 6.6 GM/DL (6.4-8.2)
[2020-04-14 11:52] LABS: BASOPHILS % (AUTO) 0 % (0-10); EOSINOPHILS % (AUTO) 0 % (0-10); HEMATOCRIT 39 % (35-52); HEMOGLOBIN 12.4 G/DL (11.5-16.0); LYMPHOCYTES # (AUTO) 1.1 X 10^3 (1.0-4.0); LYMPHOCYTES % (AUTO) 12 % (12-44); MEAN CORPUSCULAR HEMOGLOBIN 30 PG (25-34); MEAN CORPUSCULAR HGB CONC 32 G/DL (32-36); MEAN CORPUSCULAR VOLUME 93 FL (80-99); MEAN PLATELET VOLUME 8.6 FL (7.4-10.4); MONOCYTES % (AUTO) 0 % (0-12); NEUTROPHILS # (AUTO) 8.5 X 10^3 (1.8-7.8); NEUTROPHILS % (AUTO) 88 % (42-75); PLATELET COUNT 192 10^3/uL (130-400); RED CELL DISTRIBUTION WIDTH 15.2 % (10.0-14.5); WHITE BLOOD COUNT 9.7 10^3/uL (4.3-11.0)
[2020-04-14 12:13] LABS: ALANINE AMINOTRANSFERASE 22 U/L (0-55); ALBUMIN 4.4 GM/DL (3.2-4.5); ALKALINE PHOSPHATASE 134 U/L (40-136); BILIRUBIN,TOTAL 0.4 MG/DL (0.1-1.0); BUN/CREATININE RATIO 30; CALCIUM 10.1 MG/DL (8.5-10.1); CARBON DIOXIDE 23 MMOL/L (21-32); CHLORIDE 103 MMOL/L (98-107); CREATININE SERUM 0.84 MG/DL (0.60-1.30); GFR ESTIMATED > 60; GLUCOSE 155 MG/DL (70-105); SODIUM 137 MMOL/L (135-145)
[2020-04-21 09:36] LABS: BASOPHILS % (AUTO) 1 % (0-10); EOSINOPHILS # (AUTO) 0.1 10^3/uL (0.0-0.3); EOSINOPHILS % (AUTO) 4 % (0-10); HEMATOCRIT 35 % (35-52); HEMOGLOBIN 11.3 G/DL (11.5-16.0); LYMPHOCYTES # (AUTO) 1.3 X 10^3 (1.0-4.0); LYMPHOCYTES % (AUTO) 42 % (12-44); MEAN CORPUSCULAR HEMOGLOBIN 30 PG (25-34); MEAN CORPUSCULAR HGB CONC 33 G/DL (32-36); MEAN CORPUSCULAR VOLUME 93 FL (80-99); MEAN PLATELET VOLUME 10.3 FL (7.4-10.4); MONOCYTES # (AUTO) 0.1 X 10^3 (0.0-1.0); MONOCYTES % (AUTO) 2 % (0-12); NEUTROPHILS # (AUTO) 1.6 X 10^3 (1.8-7.8); NEUTROPHILS % (AUTO) 52 % (42-75); PLATELET COUNT 114 10^3/uL (130-400); RED CELL DISTRIBUTION WIDTH 14.4 % (10.0-14.5)
[2020-04-21 10:00] LABS: BUN/CREATININE RATIO 30; CALCIUM 9.1 MG/DL (8.5-10.1); CARBON DIOXIDE 24 MMOL/L (21-32); CHLORIDE 104 MMOL/L (98-107); CREATININE SERUM 0.84 MG/DL (0.60-1.30); GFR ESTIMATED > 60; GLUCOSE 97 MG/DL (70-105); POTASSIUM 4.1 MMOL/L (3.6-5.0); SODIUM 137 MMOL/L (135-145)
[~2020-04-28] VITALS: Ht 152.4 cm; Wt 73.9 kg
[~2020-04-28 09:11] MED LIST changes: +BEVACIZUMAB IV SCH; +FAMOTIDINE 20MG/2ML IV (CANCER CTR) IV SCH; -IOHEXOL 240 MGI/ML 50 ML (OMNIPAQUE) VIAL IV ONE; +NS IV 1000 ML (CANCER CTR) IV SCH; +PALONOSETRON HCL 0.25 MG, DEXAMETHASONE INJECTION 10 MG in NS (IVPB) CANCER CENTER 50 ML IV SCH; +[UNRECOGNIZED DRUG - OTHER] IV SCH; +diphenhydrAMINE 25 MG TAB (BENADRYL) CANCER CENTER PO SCH; +diphenhydrAMINE 50 MG/ML INJ (CANCER CENTER) IV PRN
[2020-04-28 09:27] LABS: BASOPHILS % (AUTO) 1 % (0-10); EOSINOPHILS # (AUTO) 0.1 10^3/uL (0.0-0.3); EOSINOPHILS % (AUTO) 5 % (0-10); HEMATOCRIT 35 % (35-52); HEMOGLOBIN 10.8 G/DL (11.5-16.0); LYMPHOCYTES % (AUTO) 65 % (12-44); MEAN CORPUSCULAR HEMOGLOBIN 30 PG (25-34); MEAN CORPUSCULAR HGB CONC 31 G/DL (32-36); MEAN CORPUSCULAR VOLUME 95 FL (80-99); MEAN PLATELET VOLUME 9.1 FL (7.4-10.4); MONOCYTES # (AUTO) 0.3 X 10^3 (0.0-1.0); MONOCYTES % (AUTO) 21 % (0-12); NEUTROPHILS # (AUTO) 0.1 X 10^3 (1.8-7.8); NEUTROPHILS % (AUTO) 8 % (42-75); PLATELET COUNT 149 10^3/uL (130-400); RED CELL DISTRIBUTION WIDTH 14.9 % (10.0-14.5); WHITE BLOOD COUNT 1.6 10^3/uL (4.3-11.0)
[2020-04-28 09:54] LABS: BUN/CREATININE RATIO 25; CALCIUM 9.2 MG/DL (8.5-10.1); CARBON DIOXIDE 26 MMOL/L (21-32); CHLORIDE 107 MMOL/L (98-107); CREATININE SERUM 0.85 MG/DL (0.60-1.30); GFR ESTIMATED > 60; GLUCOSE 94 MG/DL (70-105); SODIUM 140 MMOL/L (135-145)
== END 2020-05-06 | disposition home or self-care (01) ==
LOC: ONC 09:11
PROVIDERS: ATTEND Internal Medicine Hematology & Oncology
DX: Z51.11 Encounter for antineoplastic chemotherapy (principal); C53.8 Malignant neoplasm of overlapping sites of cervix uteri; N13.30 Unspecified hydronephrosis
CPT/HCPCS: 80053; 85025; 86304; 96375; 96413; 96415; 96417; G0463; 36591; 80048; 96367; 96409; 99213

== ENCOUNTER 2020-08-04 15:13 | Outpatient (RCR) | payer BC ==
[~2020-08-04 15:13] MED LIST changes: -BEVACIZUMAB IV SCH; -FAMOTIDINE 20MG/2ML IV (CANCER CTR) IV SCH; -NS IV 1000 ML (CANCER CTR) IV SCH; -PALONOSETRON HCL 0.25 MG, DEXAMETHASONE INJECTION 10 MG in NS (IVPB) CANCER CENTER 50 ML IV SCH; -[UNRECOGNIZED DRUG - OTHER] IV SCH; -diphenhydrAMINE 25 MG TAB (BENADRYL) CANCER CENTER PO SCH; -diphenhydrAMINE 50 MG/ML INJ (CANCER CENTER) IV PRN
[2020-08-04 15:42] LABS: ALANINE AMINOTRANSFERASE 22 U/L (0-55); ALBUMIN 4.1 GM/DL (3.2-4.5); ALKALINE PHOSPHATASE 168 U/L (40-136); BILIRUBIN,TOTAL 0.5 MG/DL (0.1-1.0); BUN/CREATININE RATIO 14; CALCIUM 9.8 MG/DL (8.5-10.1); CARBON DIOXIDE 25 MMOL/L (21-32); CHLORIDE 103 MMOL/L (98-107); CREATININE SERUM 0.92 MG/DL (0.60-1.30); GFR ESTIMATED > 60; GLUCOSE 104 MG/DL (70-105); POTASSIUM 4.2 MMOL/L (3.6-5.0); SODIUM 139 MMOL/L (135-145); TOTAL PROTEIN 7.4 GM/DL (6.4-8.2)
[2020-08-04 15:47] LABS: BASOPHILS % (AUTO) 0 % (0-10); EOSINOPHILS # (AUTO) 0.1 10^3/uL (0.0-0.3); EOSINOPHILS % (AUTO) 1 % (0-10); HEMATOCRIT 38 % (35-52); LYMPHOCYTES # (AUTO) 1.8 10^3/uL (1.0-4.0); LYMPHOCYTES % (AUTO) 24 % (12-44); MEAN CORPUSCULAR HEMOGLOBIN 31 pg (25-34); MEAN CORPUSCULAR HGB CONC 32 g/dL (32-36); MEAN CORPUSCULAR VOLUME 97 fL (80-99); MEAN PLATELET VOLUME 9.2 fL (9.0-12.2); MONOCYTES # (AUTO) 0.3 10^3/uL (0.0-1.0); MONOCYTES % (AUTO) 4 % (0-12); NEUTROPHILS # (AUTO) 5.2 10^3/uL (1.8-7.8); NEUTROPHILS % (AUTO) 70 % (42-75); PLATELET COUNT 183 10^3/uL (130-400); WHITE BLOOD COUNT 7.5 10^3/uL (4.3-11.0)
== END 2020-08-10 | disposition home or self-care (01) ==
LOC: ONC 15:13
PROVIDERS: ATTEND Internal Medicine Hematology & Oncology
DX: C53.8 Malignant neoplasm of overlapping sites of cervix uteri (principal); N13.30 Unspecified hydronephrosis; I10 Essential (primary) hypertension; E11.9 Type 2 diabetes mellitus without complications; Z92.21 Personal history of antineoplastic chemotherapy
CPT/HCPCS: 80053; 85025; 99213

== ENCOUNTER → 2020-08-27 | Outpatient (CLI) | payer BC ==
[~2020-08-27] MED LIST changes: +BARIUM SUSPENSION 2.1% (VANILLA SILQ) 450 ML PO ONE; +HOLD METFORMIN - RECEIVED CONTRAST 20 ML VIAL IV SCH; +IOHEXOL 350 MG/ML 100 ML (OMNIPAQUE 350) VIAL IV ONE; +NS 100 ML (IVPB) BAG IV ONE
--- NOTE | 2020-08-27 09:21 | Diagnostic Imaging Report ---
PROCEDURE: CT chest with contrast, CT abdomen and pelvis with and without contrast. TECHNIQUE: Pre and post intravenous contrast axial imaging of the abdomen and pelvis and post contrast axial imaging of the chest were performed. Auto Exposure Controls were utilized during the CT exam to meet ALARA standards for radiation dose reduction. INDICATION: Malignant neoplasm of the cervix, followup. Correlation is made with prior CT from 07/23/2019. CT CHEST: A left chest wall port has tip within the SVC. No axillary lymphadenopathy is identified. No mediastinal or hilar lymphadenopathy is detected. There is no pericardial or pleural fluid identified. No pulmonary infiltrates, nodules or masses are detected. IMPRESSION: Unremarkable CT chest. There is no evidence of thoracic lymphadenopathy or pulmonary metastatic disease. CT ABDOMEN AND PELVIS: No discrete liver mass is detected. Gallbladder is unremarkable. There is no biliary duct dilatation. The pancreas and spleen are unremarkable. No adrenal mass is identified. Left kidney is unremarkable. There has been development of significant right-sided hydroureteronephrosis. There is marked cortical thinning involving the right kidney suggestive of a fairly long-standing process of obstruction. The dilated right ureter is traced into the pelvis where there has been significant increase of soft tissue mass in the midline and right pelvis since prior exam. Abnormal soft tissue now extends posteriorly and laterally to the right to the region of the sciatic notch. Soft tissue mass like density measures approximately 10.8 cm long axis x 5.5 similar short axis compared with approximately 5.8 cm long axis x 3.93 short axis on prior exam. A soft tissue mass is inseparable from portions of the rectum and sigmoid colon. No definite inguinal or iliac lymphadenopathy is identified. Soft tissue mass does result in obstruction of the distal right ureter. Bladder is unremarkable. The left ureter is unremarkable. No central retroperitoneal or mesenteric lymphadenopathy is seen. There is a large amount of stool throughout the colon consistent with constipation. IMPRESSION: Adverse appearance to the abdomen and pelvis when compared with prior examination from one year earlier. There has been significant increase in size of pelvic mass since prior CT. This now obstructs the distal right ureter and there is significant right-sided hydroureteronephrosis. Soft tissue mass is inseparable from portions of the rectum and sigmoid colon and rectum invasion cannot be entirely excluded. Mass is also inseparable from portions of the urinary bladder posteriorly. No definite abdominal or pelvic lymphadenopathy is seen. There is moderate stool throughout the colon consistent with constipation. Dictated by: Dictated on workstation # [id number]
== END ==
LOC: RAD 08:15
PROVIDERS: ATTEND Internal Medicine Hematology & Oncology
DX: C53.9 Malignant neoplasm of cervix uteri, unspecified (principal); N13.30 Unspecified hydronephrosis; M79.89 Other specified soft tissue disorders
CPT/HCPCS: 71260; 74178

== ENCOUNTER → 2020-10-15 | Outpatient (CLI) | payer BC ==
[~2020-10-15] MED LIST changes: -BARIUM SUSPENSION 2.1% (VANILLA SILQ) 450 ML PO ONE; +GADOBUTROL 7.5 MMOL/7.5 ML (GADAVIST) VIAL IV ONE; -HOLD METFORMIN - RECEIVED CONTRAST 20 ML VIAL IV SCH; -IOHEXOL 350 MG/ML 100 ML (OMNIPAQUE 350) VIAL IV ONE; -NS 100 ML (IVPB) BAG IV ONE
--- NOTE | 2020-10-15 14:42 | Diagnostic Imaging Report ---
PROCEDURE: MR imaging of the brain with and without contrast. TECHNIQUE: Multiplanar, multisequence MR imaging of the brain was performed with and without contrast. INDICATION: History of uterine cancer. Right leg weakness. COMPARISON: None. FINDINGS: No acute ischemia, mass, or hemorrhage. No abnormal enhancement is seen. 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 The ventricles, cortical sulci, and basilar cisterns are symmetric and unremarkable. The sellar and suprasellar regions have a normal appearance. The brainstem and posterior fossa are unremarkable. The paranasal sinuses demonstrate normal signal characteristics. Bilateral mastoid effusions are present. The globes and orbits are symmetric and unremarkable. The scalp and calvarium have a normal appearance. IMPRESSION: 1. No acute ischemia, mass, or hemorrhage. No abnormal enhancement to suggest intracranial metastatic disease. 2. Bilateral mastoid effusions. Dictated by: Dictated on workstation # [id number]
== END ==
LOC: RAD 13:39
PROVIDERS: ATTEND Nurse Practitioner Adult Health
DX: M21.379 Foot drop, unspecified foot (principal); H74.8X3 Other specified disorders of middle ear and mastoid, bilateral; Z85.41 Personal history of malignant neoplasm of cervix uteri
CPT/HCPCS: 70553

== ENCOUNTER → 2020-10-23 | Outpatient (CLI) | payer BC ==
--- NOTE | 2020-10-23 19:39 | Diagnostic Imaging Report ---
PROCEDURE: MRI lumbar spine with and without contrast. TECHNIQUE: Multiplanar, multisequence MRI of the lumbar spine was performed with and without contrast. INDICATION: Right leg weakness. COMPARISON: CT chest, abdomen, and pelvis dated 08/27/2020 FINDINGS: For the purposes of this exam, last well-formed disc space is denoted the L5-S1 level. Static alignment is maintained. There is no significant anteroretrolisthesis. There is no evidence of jumped facets. Lumbar vertebral body heights are maintained. There is no evidence of acute fracture. There is moderate abnormal patchy and confluent irregular marrow signal greatest involving the visualized portions of the T11-L1 levels. Patchy irregular areas of T1 low signal are also noted within the remainder of the lumbar spine. There is also large partially visualized enhancing mass of the right pelvis extending into and invading through the S2-S4 levels on the right. At its widest, visualized portions of the mass measures 9 x 4.9 cm. This corresponds to soft tissue mass described on previous CT dated 08/27/2020. This lesion does show avid abnormal postcontrast enhancement. Visualized portions of the distal cord are unremarkable. Conus terminates at approximately the L1 level. There is no abnormal enhancement of the included portions of distal cord. No abnormal intrathecal filling defects are seen. Remainder of the pre and paravertebral soft tissue structures demonstrates severe right-sided hydroureteronephrosis with thinning of the right renal parenchyma. There does appear to be mild hydronephrosis on the left as well. Axial images demonstrate the following: T11-T12 and T12-L1: There is no large disc bulge or focal protrusion. There is no significant spinal canal or neuroforaminal stenosis. L1-L2: There is slight broad-based posterior disc bulge and bilateral ligamentum flavum laxity and facet arthropathy. As a result, there is minimal narrowing of the spinal canal. Neural foramen are unremarkable. L2-L3: There is slight broad-based posterior disc bulge and bilateral ligamentum flavum laxity and facet arthropathy, but no significant spinal canal or neuroforaminal stenosis. L3-L4: There is slight broad-based posterior disc bulge and bilateral ligamentum flavum laxity and facet arthropathy, but no significant spinal canal or neuroforaminal stenosis. L4-L5: There is broad-based posterior disc bulge and bilateral ligamentum flavum laxity and facet arthropathy. As a result, there is mild narrowing of the spinal canal and bilateral neural foramen. L5-S1: There is no large disc bulge or focal protrusion. There is bilateral facet arthropathy, but no significant spinal canal or neuroforaminal stenosis. IMPRESSION: 1. Large, but only partially visualized mass of the right pelvis extending into and through the right sacrum. This also likely results in mass effect and invasion of multiple right sacral nerve roots. Correlation with known malignancy is recommended. If further evaluation is indicated, recommend pre and postcontrast MR of the pelvis. 2. No acute fracture or dislocation of the lumbar spine 3. Unremarkable appearance of the included portions of distal cord. Additionally, there is no significant spinal canal or neuroforaminal stenosis. 4. Bilateral hydroureteronephrosis, marked on the right and minimal on the left. This is also likely related to patient's known pelvic mass and could be further assessed with repeat CT of the abdomen and pelvis if indicated. Dictated by: Dictated on workstation # [id number]
== END ==
LOC: RAD 16:07
PROVIDERS: ATTEND Nurse Practitioner Adult Health
DX: C53.9 Malignant neoplasm of cervix uteri, unspecified (principal); N13.30 Unspecified hydronephrosis; G83.11 Monoplegia of lower limb affecting right dominant side
CPT/HCPCS: 72158

== ENCOUNTER 2020-11-12 11:13 | Outpatient (RCR) | payer BC ==
[2020-08-21 14:02] LABS: BASOPHILS % (AUTO) 0 % (0-10); EOSINOPHILS % (AUTO) 1 % (0-10); HEMATOCRIT 34 % (35-52); HEMOGLOBIN 10.5 g/dL (11.5-16.0); LYMPHOCYTES # (AUTO) 1.6 10^3/uL (1.0-4.0); LYMPHOCYTES % (AUTO) 23 % (12-44); MEAN CORPUSCULAR HEMOGLOBIN 30 pg (25-34); MEAN CORPUSCULAR HGB CONC 31 g/dL (32-36); MEAN CORPUSCULAR VOLUME 98 fL (80-99); MEAN PLATELET VOLUME 8.8 fL (9.0-12.2); MONOCYTES # (AUTO) 0.3 10^3/uL (0.0-1.0); MONOCYTES % (AUTO) 5 % (0-12); NEUTROPHILS % (AUTO) 71 % (42-75); PLATELET COUNT 171 10^3/uL (130-400)
[2020-08-21 14:28] LABS: ALANINE AMINOTRANSFERASE 20 U/L (0-55); ALKALINE PHOSPHATASE 147 U/L (40-136); BILIRUBIN,TOTAL 0.5 MG/DL (0.1-1.0); BUN/CREATININE RATIO 18; CALCIUM 9.4 MG/DL (8.5-10.1); CARBON DIOXIDE 22 MMOL/L (21-32); CHLORIDE 105 MMOL/L (98-107); CREATININE SERUM 0.84 MG/DL (0.60-1.30); GFR ESTIMATED > 60; GLUCOSE 94 MG/DL (70-105); POTASSIUM 4.1 MMOL/L (3.6-5.0); SODIUM 138 MMOL/L (135-145); TOTAL PROTEIN 7.2 GM/DL (6.4-8.2)
[2020-09-07 16:13] LABS: BASOPHILS % (AUTO) 0 % (0-10); EOSINOPHILS # (AUTO) 0.1 10^3/uL (0.0-0.3); EOSINOPHILS % (AUTO) 1 % (0-10); HEMATOCRIT 35 % (35-52); LYMPHOCYTES # (AUTO) 1.2 10^3/uL (1.0-4.0); LYMPHOCYTES % (AUTO) 14 % (12-44); MEAN CORPUSCULAR HEMOGLOBIN 31 pg (25-34); MEAN CORPUSCULAR HGB CONC 32 g/dL (32-36); MEAN CORPUSCULAR VOLUME 97 fL (80-99); MEAN PLATELET VOLUME 8.8 fL (9.0-12.2); MONOCYTES # (AUTO) 0.4 10^3/uL (0.0-1.0); MONOCYTES % (AUTO) 5 % (0-12); NEUTROPHILS # (AUTO) 7.3 10^3/uL (1.8-7.8); NEUTROPHILS % (AUTO) 80 % (42-75); PLATELET COUNT 222 10^3/uL (130-400); WHITE BLOOD COUNT 9.1 10^3/uL (4.3-11.0)
[2020-09-07 16:32] LABS: ALANINE AMINOTRANSFERASE 17 U/L (0-55); ALBUMIN 4.2 GM/DL (3.2-4.5); ALKALINE PHOSPHATASE 185 U/L (40-136); BILIRUBIN,TOTAL 0.4 MG/DL (0.1-1.0); BUN/CREATININE RATIO 15; CALCIUM 10.1 MG/DL (8.5-10.1); CARBON DIOXIDE 25 MMOL/L (21-32); CHLORIDE 101 MMOL/L (98-107); GFR ESTIMATED > 60; GLUCOSE 107 MG/DL (70-105); SODIUM 136 MMOL/L (135-145); TOTAL PROTEIN 7.5 GM/DL (6.4-8.2)
[2020-09-15 10:42] LABS: BASOPHILS % (AUTO) 0 % (0-10); EOSINOPHILS # (AUTO) 0.1 10^3/uL (0.0-0.3); EOSINOPHILS % (AUTO) 1 % (0-10); HEMATOCRIT 34 % (35-52); HEMOGLOBIN 10.7 g/dL (11.5-16.0); LYMPHOCYTES # (AUTO) 1.2 10^3/uL (1.0-4.0); LYMPHOCYTES % (AUTO) 18 % (12-44); MEAN CORPUSCULAR HEMOGLOBIN 31 pg (25-34); MEAN CORPUSCULAR HGB CONC 32 g/dL (32-36); MEAN CORPUSCULAR VOLUME 98 fL (80-99); MEAN PLATELET VOLUME 8.9 fL (9.0-12.2); MONOCYTES # (AUTO) 0.4 10^3/uL (0.0-1.0); MONOCYTES % (AUTO) 6 % (0-12); NEUTROPHILS # (AUTO) 4.9 10^3/uL (1.8-7.8); NEUTROPHILS % (AUTO) 74 % (42-75); PLATELET COUNT 170 10^3/uL (130-400); WHITE BLOOD COUNT 6.6 10^3/uL (4.3-11.0)
[2020-09-15 10:55] LABS: BUN/CREATININE RATIO 17; CALCIUM 9.3 MG/DL (8.5-10.1); CARBON DIOXIDE 27 MMOL/L (21-32); CHLORIDE 101 MMOL/L (98-107); CREATININE SERUM 0.89 MG/DL (0.60-1.30); GFR ESTIMATED > 60; GLUCOSE 104 MG/DL (70-105); POTASSIUM 4.2 MMOL/L (3.6-5.0); SODIUM 137 MMOL/L (135-145)
[2020-09-22 14:55] LABS: BASOPHILS % (AUTO) 0 % (0-10); EOSINOPHILS % (AUTO) 0 % (0-10); HEMATOCRIT 29 % (35-52); HEMOGLOBIN 9.2 g/dL (11.5-16.0); LYMPHOCYTES # (AUTO) 0.8 10^3/uL (1.0-4.0); LYMPHOCYTES % (AUTO) 16 % (12-44); MEAN CORPUSCULAR HEMOGLOBIN 32 pg (25-34); MEAN CORPUSCULAR HGB CONC 32 g/dL (32-36); MEAN CORPUSCULAR VOLUME 100 fL (80-99); MEAN PLATELET VOLUME 9.9 fL (9.0-12.2); MONOCYTES # (AUTO) 0.2 10^3/uL (0.0-1.0); MONOCYTES % (AUTO) 4 % (0-12); NEUTROPHILS # (AUTO) 3.9 10^3/uL (1.8-7.8); NEUTROPHILS % (AUTO) 79 % (42-75); PLATELET COUNT 63 10^3/uL (130-400); WHITE BLOOD COUNT 4.9 10^3/uL (4.3-11.0)
[2020-09-22 15:12] LABS: BUN/CREATININE RATIO 19; CALCIUM 9.3 MG/DL (8.5-10.1); CARBON DIOXIDE 27 MMOL/L (21-32); CHLORIDE 101 MMOL/L (98-107); CREATININE SERUM 0.91 MG/DL (0.60-1.30); GFR ESTIMATED > 60; GLUCOSE 129 MG/DL (70-105); POTASSIUM 3.6 MMOL/L (3.6-5.0); SODIUM 136 MMOL/L (135-145)
[2020-09-30 15:25] LABS: BASOPHILS % (AUTO) 0 % (0-10); EOSINOPHILS % (AUTO) 1 % (0-10); HEMATOCRIT 29 % (35-52); HEMOGLOBIN 9.2 g/dL (11.5-16.0); LYMPHOCYTES # (AUTO) 0.9 10^3/uL (1.0-4.0); LYMPHOCYTES % (AUTO) 30 % (12-44); MEAN CORPUSCULAR HEMOGLOBIN 32 pg (25-34); MEAN CORPUSCULAR HGB CONC 32 g/dL (32-36); MEAN CORPUSCULAR VOLUME 100 fL (80-99); MEAN PLATELET VOLUME 10.9 fL (9.0-12.2); MONOCYTES # (AUTO) 0.2 10^3/uL (0.0-1.0); MONOCYTES % (AUTO) 6 % (0-12); NEUTROPHILS # (AUTO) 1.9 10^3/uL (1.8-7.8); NEUTROPHILS % (AUTO) 64 % (42-75); PLATELET COUNT 46 10^3/uL (130-400)
[2020-09-30 15:50] LABS: ALANINE AMINOTRANSFERASE 14 U/L (0-55); ALBUMIN 3.9 GM/DL (3.2-4.5); ALKALINE PHOSPHATASE 144 U/L (40-136); BILIRUBIN,TOTAL 0.4 MG/DL (0.1-1.0); BUN/CREATININE RATIO 10; CALCIUM 9.6 MG/DL (8.5-10.1); CARBON DIOXIDE 23 MMOL/L (21-32); CHLORIDE 102 MMOL/L (98-107); CREATININE SERUM 0.86 MG/DL (0.60-1.30); GFR ESTIMATED > 60; GLUCOSE 111 MG/DL (70-105); POTASSIUM 3.9 MMOL/L (3.6-5.0); SODIUM 140 MMOL/L (135-145); TOTAL PROTEIN 6.8 GM/DL (6.4-8.2)
[~2020-11-12] VITALS: Ht 152.4 cm; Wt 64.0 kg
[~2020-11-12 11:13] MED LIST changes: +ALTEPLASE 2 MG (CATHFLO) CANCER CENTER IV ONE; +FAMOTIDINE 20MG/2ML IV (CANCER CTR) IV SCH; +FOSAPREPITANT (CANCER CENTER) 150 MG in NS (IVPB) CANCER CENTER ONLY 150 ML IV SCH; -GADOBUTROL 7.5 MMOL/7.5 ML (GADAVIST) VIAL IV ONE; +NS IV 1000 ML (CANCER CTR) IV SCH; +diphenhydrAMINE 25 MG TAB (BENADRYL) CANCER CENTER PO SCH
== END 2020-11-16 09:47 | disposition home or self-care (01) ==
LOC: ONC 11:13
PROVIDERS: ATTEND Internal Medicine Hematology & Oncology
DX: Z51.11 Encounter for antineoplastic chemotherapy (principal); C53.8 Malignant neoplasm of overlapping sites of cervix uteri; N13.30 Unspecified hydronephrosis; I10 Essential (primary) hypertension; E11.9 Type 2 diabetes mellitus without complications; Z92.21 Personal history of antineoplastic chemotherapy
CPT/HCPCS: 80053; 85025; 86304; G0463; 36591; 36593; 77290; 77295; 77300; 77334; 77336; 77417; 80048; 96367; 96375; 96413; 99213

== ENCOUNTER 2020-11-25 13:06 | Outpatient (RCR) | payer BC ==
[2020-11-23 15:04] LABS: BASOPHILS % (AUTO) 0 % (0-10); EOSINOPHILS # (AUTO) 0.2 10^3/uL (0.0-0.3); EOSINOPHILS % (AUTO) 1 % (0-10); HEMATOCRIT 25 % (35-52); HEMOGLOBIN 7.4 g/dL (11.5-16.0); LYMPHOCYTES # (AUTO) 1.2 10^3/uL (1.0-4.0); LYMPHOCYTES % (AUTO) 10 % (12-44); MEAN CORPUSCULAR HEMOGLOBIN 29 pg (25-34); MEAN CORPUSCULAR HGB CONC 29 g/dL (32-36); MEAN CORPUSCULAR VOLUME 100 fL (80-99); MEAN PLATELET VOLUME 9.1 fL (9.0-12.2); MONOCYTES # (AUTO) 0.4 10^3/uL (0.0-1.0); MONOCYTES % (AUTO) 4 % (0-12); NEUTROPHILS # (AUTO) 9.5 10^3/uL (1.8-7.8); NEUTROPHILS % (AUTO) 84 % (42-75); PLATELET COUNT 259 10^3/uL (130-400); WHITE BLOOD COUNT 11.3 10^3/uL (4.3-11.0)
[2020-11-23 15:23] LABS: ALANINE AMINOTRANSFERASE 21 U/L (0-55); ALBUMIN 3.6 GM/DL (3.2-4.5); ALKALINE PHOSPHATASE 290 U/L (40-136); BILIRUBIN,TOTAL 0.2 MG/DL (0.1-1.0); BUN/CREATININE RATIO 15; CALCIUM 9.2 MG/DL (8.5-10.1); CARBON DIOXIDE 26 MMOL/L (21-32); CHLORIDE 100 MMOL/L (98-107); CREATININE SERUM 0.92 MG/DL (0.60-1.30); GFR ESTIMATED > 60; GLUCOSE 108 MG/DL (70-105); SODIUM 134 MMOL/L (135-145); TOTAL PROTEIN 7.2 GM/DL (6.4-8.2)
[~2020-11-25 13:06] MED LIST changes: -ALTEPLASE 2 MG (CATHFLO) CANCER CENTER IV ONE; -FAMOTIDINE 20MG/2ML IV (CANCER CTR) IV SCH; -FOSAPREPITANT (CANCER CENTER) 150 MG in NS (IVPB) CANCER CENTER ONLY 150 ML IV SCH; -LISI-556 PO; +LISI-729 PO; -NS IV 1000 ML (CANCER CTR) IV SCH; -diphenhydrAMINE 25 MG TAB (BENADRYL) CANCER CENTER PO SCH
== END 2021-02-14 | disposition home or self-care (01) ==
LOC: ONC 13:06
PROVIDERS: ATTEND Internal Medicine Hematology & Oncology
DX: Z51.11 Encounter for antineoplastic chemotherapy (principal); C53.8 Malignant neoplasm of overlapping sites of cervix uteri; N13.30 Unspecified hydronephrosis; I10 Essential (primary) hypertension; E11.9 Type 2 diabetes mellitus without complications; Z92.21 Personal history of antineoplastic chemotherapy
CPT/HCPCS: 77336; 77417; 80053; 85025